=== PATIENT | female | born 1930 | race Caucasian/White ===

== ENCOUNTER 2016-08-28 20:07 | Inpatient (IN) | payer OTHER ==
[~2016-08-28] VITALS: Ht 147.3 cm; Wt 44.2 kg
[~2016-08-28 20:07] MED LIST: BRIM0.2S OPR; BRIN1SUS OPR; CPR250 PO; DFL100 PO; DTRSR4 PO; FLUO20CA35 PO; FNTTP50 TOP; METO25TA56 PO; OXYC-57 PO; POTA20TA13 PO; PRED-301 PO; SIMV-150 PO; SODIUM CHLORIDE 0.9% 1000ML 1,000 ML IV SCH; TRAZ100T29 PO; TYL325X PO; XNX25 PO; ZLF/100 PO
--- NOTE | 2016-08-28 20:13 | EMERGENCY ROOM VISIT NOTE ---
History Report prepared by Brandon: Steven Belcher Under the Supervision of: Dr. Maurice Pleitez D.O. First contact with patient: 19:48 Stated Complaint: STROKE SX History of Present Illness The patient is an 86 year old female who presents to the Emergency Room via EMS after the patient's family started to notice stroke-like symptoms that started one hour prior to arrival. Per EMS and family, the patient started having aphasia, right sided facial droop, and right sided weakness. Her last known well time was 1899. The patient's HPI is limited due to aphasia. Source of History: family, EMS History Limited By: aphasia Onset: 1 hour prior to arrival Associated Symptoms: + weakness (right-sided) Note: Other associated symptoms: aphasia, right sided facial droop Review of Systems The ROS is limited due to aphasia. Past Medical & Surgical Medical Problems: (1) Ambulatory dysfunction (2) Anxiety (3) Depression (4) Glaucoma (5) Hyperlipidemia (6) Hypertension (7) No pertinent past medical history (8) Osteoarthritis (9) Osteoporosis (10) Rheumatoid arthritis Family History Patient reports no known family medical history. Social History Marital Status: Housing Status: lives with family Occupation Status: retired Current/Historical Medications Scheduled Alprazolam (Xanax), 0.5 MG PO HS Aspirin (Aspirin), 325 MG PO QAM Brimonidine Tartrate-Timolol M (Combigan), 1 DROP OPR Q12 Brinzolamide Oph (Azopt Oph), 1 DROP OPR BID Diclofenac Sodium (Topical) (Voltaren 1% Top Gel), 1 APPLN TOP QID Fentanyl (Fentanyl), 75 MCG TOP [id number] Levothyroxine Sodium (Levothyroxine Sodium), 25 MCG PO QAM Lisinopril (Lisinopril), 2.5 MG PO QAM Methotrexate (Methotrexate), 2.5 MG PO UD Metoprolol Succinate (Metoprolol Succinate ER), 25 MG PO HS Omeprazole (Prilosec), 20 MG PO QAM Oxycodone/Acetaminophen 5MG/325MG (Percocet 5MG/325MG), 2 TABS PO QAM Oxycodone/Acetaminophen 5MG/325MG (Percocet 5MG/325MG), 2 TABS PO QPM Oxycodone/Acetaminophen 5MG/325MG (Percocet 5MG/325MG), 1 TABLET PO HS Prednisolone Acetate (Prednisolone Acetate), 1 DROP OPR HS Prednisone (Prednisone), 2.5 MG PO QAM Probiotic Product (Probiotic Acidophilus), 1 CAP PO QAM Sennosides-Docusate Sodium (Senna S), 3 TABS PO AMHS Sertraline HCl (Sertraline HCl), 150 MG PO QAM Simvastatin (Simvastatin), 10 MG PO HS Tolterodine Tartrate (Tolterodine Tartrate ER), 4 MG PO HS Trazodone Hcl (Trazodone), 100 MG PO BID Allergies Coded Allergies: No Known Allergies (Unverified , 02/09/15) Physical Exam Vital Signs Date Time Temp Pulse Resp B/P Pulse Ox O2 Delivery O2 Flow Rate FiO2 08/28/16 23:00 88 18 135/57 98 Nasal Cannula 4.0 08/28/16 22:30 65 16 118/58 99 Nasal Cannula 4.0 08/28/16 22:15 77 16 104/51 98 Nasal Cannula 4.0 08/28/16 22:10 66 16 106/51 98 Nasal Cannula 4.0 08/28/16 22:00 80 16 133/57 99 Nasal Cannula 4.0 08/28/16 21:45 86 18 126/123 98 Nasal Cannula 4.0 08/28/16 21:29 78 18 151/68 98 Nasal Cannula 4.0 08/28/16 21:14 84 20 175/78 91 08/28/16 21:10 128/95 08/28/16 21:09 78 23 98 08/28/16 21:04 70 14 175/130 100 08/28/16 21:04 74 08/28/16 21:00 171/99 08/28/16 20:59 58 15 172/106 99 Nasal Cannula 4.0 08/28/16 20:59 58 15 172/106 100 08/28/16 20:52 100 Nasal Cannula 4.0 08/28/16 20:49 75 14 203/98 98 Room Air 08/28/16 20:44 74 15 160/107 100 Nasal Cannula 4.0 08/28/16 20:40 72 203/98 Physical Exam GENERAL: Patient is awake looking to the left side, frothy sputum noticed at mouth, patient is not able to speak at this time. EYES: Pupils are mid-sized and reactive to light bilaterally. Patient has left gaze preference with right side neglect. EARS, NOSE, MOUTH AND THROAT: The nose is without any evidence of any deformity. Mucous membranes are moist. Frothy sputum noted. NECK: The neck is nontender and supple. RESPIRATORY: Normal respiratory effort is noted there is no evidence of wheezing rhonchi or rales CARDIOVASCULAR: Regular rate and rhythm noted there no murmurs rubs or gallops normal S1 normal S2 GASTROINTESTINAL: The abdomen is soft. Bowel sounds are present in all quadrants. Abdomen is nontender MUSCULOSKELETAL/EXTREMITIES: There is no evidence of gross deformity full range of motion is noted in the hips and shoulders SKIN: There is no obvious evidence of any rash. There are no petechiae, pallor or cyanosis noted. Trace pedal edema bilateral. NEUROLOGIC: Patient is aphasic, unable to assess orientation at this time, right facial droop noted. Pt appears flaccid in right upper extremity. Right lower extremity appears to move suddenly without purpose. Medical Decision & Procedures ER Provider Diagnostic Interpretation: Radiology results as stated below per my review and radiologist interpretation: CT OF THE HEAD WITHOUT CONTRAST CLINICAL HISTORY: Stroke COMPARISON STUDY: No previous studies for comparison. CT DOSE: 2432.49 mGy.cm TECHNIQUE: Helical axial images of the head were obtained without IV contrast. Automated exposure control was utilized for the study. FINDINGS: This exam is moderately compromised by motion artifact. There is no acute intracranial hemorrhage, midline shift or mass effect. Mild ventricular dilatation is likely due to atrophy. There are no extra-axial collections. There is possible loss of andrews-white differentiation within the left parietal, frontal and temporal lobes. There are postsurgical findings within the left maxillary sinus with wall thickening. There is moderate mucosal thickening of the sinuses. There is no calvarial fracture although sensitivity is diminished on this exam due to motion artifact. IMPRESSION: 1. No acute intracranial hemorrhage. 2. Study moderately by by motion artifact. Possible loss of andrews-white differentiation within portions of the left frontal, temporal and parietal lobes. This could reflect an acute infarct although is suboptimally assessed due to motion artifact. Electronically signed by: Jorge Luis Long M.D. 08/28/2016 8:23 PM Dictated Date/Time: 08/28/2016 8:18 PM CHEST ONE VIEW PORTABLE CLINICAL HISTORY: Stroke COMPARISON STUDY: Chest radiograph February 09, 2015 FINDINGS: S-shaped scoliosis of the thoracolumbar spine and elevation of the left hemidiaphragm is again noted. Elevation of both humeral heads suggest chronic rotator cuff tears. There is an old fracture the distal left clavicle. No pneumothorax or pleural effusion is present. There is no consolidation or evidence of pulmonary edema. Cardiac size is within normal limits. A skinfold projects over the left hemithorax. IMPRESSION: 1. No acute findings. No change in appearance of the chest. 2. Stable elevation of the left hemidiaphragm. 3. Moderate scoliosis of the thoracolumbar spine. Electronically signed by: Jorge Luis Long M.D. 08/28/2016 9:06 PM Dictated Date/Time: 08/28/2016 9:04 PM Laboratory Results 08/28/16 20:31 Red Blood Count 4.77, Mean Corpuscular Volume 86.4, Mean Corpuscular Hemoglobin 28.5, Mean Corpuscular Hemoglobin Concent 33.0, Mean Platelet Volume 9.6, Neutrophils (%) (Auto) 70.8, Lymphocytes (%) (Auto) 18.5, Monocytes (%) (Auto) 9.8, Eosinophils (%) (Auto) 0.3, Basophils (%) (Auto) 0.1, Neutrophils # (Auto) 7.30, Lymphocytes # (Auto) 1.91, Monocytes # (Auto) 1.01, Eosinophils # (Auto) 0.03, Basophils # (Auto) 0.01 08/28/16 20:31 Test 08/28/16 20:31 08/28/16 20:35 08/28/16 20:37 08/28/16 20:55 White Blood Count 10.31 K/uL (4.8-10.8) Red Blood Count 4.77 M/uL (4.2-5.4) Hemoglobin 13.6 g/dL (12.0-16.0) Hematocrit 41.2 % (37-47) Mean Corpuscular Volume 86.4 fL (80-100) Mean Corpuscular Hemoglobin 28.5 pg (25-34) Mean Corpuscular Hemoglobin Concent 33.0 g/dl (32-36) Platelet Count 231 K/uL (130-400) Mean Platelet Volume 9.6 fL (7.4-10.4) Neutrophils (%) (Auto) 70.8 % Lymphocytes (%) (Auto) 18.5 % Monocytes (%) (Auto) 9.8 % Eosinophils (%) (Auto) 0.3 % Basophils (%) (Auto) 0.1 % Neutrophils # (Auto) 7.30 K/uL (1.4-6.5) Lymphocytes # (Auto) 1.91 K/uL (1.2-3.4) Monocytes # (Auto) 1.01 K/uL (0.11-0.59) Eosinophils # (Auto) 0.03 K/uL (0-0.5) Basophils # (Auto) 0.01 K/uL (0-0.2) RDW Standard Deviation 51.2 fL (36.4-46.3) RDW Coefficient of Variation 16.2 % (11.5-14.5) Immature Granulocyte % (Auto) 0.5 % Immature Granulocyte # (Auto) 0.05 K/uL (0.00-0.02) Prothrombin Time 10.5 SECONDS (9.0-12.0) Prothromb Time International Ratio 1.0 (0.9-1.1) Activated Partial Thromboplast Time 19.6 SECONDS (21.0-31.0) Partial Thromboplastin Ratio 0.8 Estimated GFR () 82.5 Estimated GFR (Non- 71.2 BUN/Creatinine Ratio 29.2 (10-20) Calcium Level 8.6 mg/dl (8.5-10.1) Total Bilirubin 0.4 mg/dl (0.2-1) Direct Bilirubin < 0.1 mg/dl (0-0.2) Aspartate Amino Transf (AST/SGOT) 18 U/L (15-37) Alanine Aminotransferase (ALT/SGPT) 24 U/L (12-78) Alkaline Phosphatase 61 U/L (45-117) Total Creatine Kinase 137 U/L (26-192) Creatine Kinase MB 3.2 ng/ml (0.5-3.6) Creatine Kinase MB Ratio 2.3 (0-3.0) Troponin I 0.017 ng/ml (0-0.045) Total Protein 6.3 gm/dl (6.4-8.2) Albumin 3.4 gm/dl (3.4-5.0) Bedside Prothrombin Time INR 1.0 (0.9-1.1) Bedside Hemoglobin 14.3 g/dl (12.0-16.0) Bedside Hematocrit 42 % (37-47) Bedside Sodium 139 mEq/L (135-144) Bedside Potassium 4.6 mEq/L (3.3-5.0) Bedside Chloride 104 mEq/L (101-112) Bedside Total CO2 23 mEq/l (24-31) Anion Gap 18.0 mmol/L (16-25) Bedside Blood Urea Nitrogen 23 mg/dl (7-18) Bedside Creatinine 0.7 mg/dl (0.6-1.3) Bedside Glucose (other) 131 mg/dl (70-99) Bedside Ionized Calcium ([place]asha) 1.19 mmol/l (1.12-1.32) Urine Color YELLOW Urine Appearance CLEAR (CLEAR) Urine pH 7.0 (4.5-7.5) Urine Specific [place] 1.009 (1.000-1.030) Urine Protein NEG (NEG) Urine Glucose (UA) NEG (NEG) Urine Ketones NEG (NEG) Urine Occult Blood 1+ (NEG) Urine Nitrite NEG (NEG) Urine Bilirubin NEG (NEG) Urine Urobilinogen NEG (NEG) Urine Leukocyte Esterase NEG (NEG) Urine WBC (Auto) 1-5 /hpf (0-5) Urine RBC (Auto) 5-10 /hpf (0-4) Urine Hyaline Casts (Auto) 0 /lpf (0-5) Urine Epithelial Cells (Auto) 10-20 /lpf (0-5) Urine Bacteria (Auto) NEG (NEG) Urine Opiates Screen NEG (NEG) Urine Methadone, Qualitative NEG (NEG) Urine Barbiturates NEG (NEG) Urine Phencyclidine (PCP) Level NEG (NEG) Ur Amphetamine/Methamphetamine NEG (NEG) MDMA (Ecstasy) Screen NEG (NEG) Urine Benzodiazepines Screen POS (NEG) Urine Cocaine Metabolite NEG (NEG) Urine Marijuana (THC) NEG (NEG) Laboratory results per my review. Medications Administered Medications (Trade) Dose Ordered Sig/Joseph Route Start Time Stop Time Status Last Admin Dose Admin Sodium Chloride 1,000 ml @ 50 mls/hr Q20H IV 08/28/16 19:50 08/29/16 00:22 DC 08/28/16 19:50 50 MLS/HR Alteplase, Recombinant 39.6 mg/Empty Bag 39.6 ml @ 39.6 mls/hr TODAY@2029 IV 08/28/16 20:30 08/28/16 21:29 DC 08/28/16 20:46 39.6 MLS/HR Alteplase, Recombinant/ Syringe (Activase Inj/ Syringe) 4.4 ml @ 4.4 mls/min TODAY@2030 IV 08/28/16 20:30 08/28/16 21:00 DC 08/28/16 20:46 4.4 MLS/MIN Metoprolol Tartrate 5 mg 5 mg NOW STAT IV 08/28/16 20:32 08/28/16 20:33 DC 08/28/16 20:40 5 MG Nicardipine HCl/ Sodium Chloride (Cardene Iv/Nss 250ml) 250 ml @ 0 mls/hr Q0M STAT IV 08/28/16 20:32 08/28/16 20:33 DC 08/28/16 21:12 50 MLS/HR ECG Indication: other Rate (beats per minute): 70 Rhythm: normal sinus Findings: no ectopy, other (no acute ST segment abnormality) ED Course 1949: Ordered NSS 1000 ml @ 50 mls/hr IV. 2000: The patient was evaluated in room A1. A complete history and physical examination were performed. 2019: At this time, I discussed the patient's case with her family, and son, who agreed to TPA. 2027: At this time, I discussed the patient's case with Dr. Gonzalez - [facility] and he agreed with TPA as long as their were no other contraindications. 2029: Ordered Alteplase Recombinant 4.4 mg/ Syringe 4.4 ml @ 4.4 mls/min IV. 2031: At this time, TPA was administered to the patient. 2031: Ordered Nicardipine HCl 25 mg/ NSS 250 ml @ 0 mls/hr IV, Lopressor Iv 5 mg IV. 2111: At this time, I discussed the patient's case with Dr. Gonzalez - [facility] and he wants to transfer the patient. 2118: At this time, I updated the patient's family and discussed the test results with them. 2144: At this time, I discussed the patient's case with Dr. Fitzpatrick - [facility] and she agreed to accept the patient for further evaluation. Medical Decision Differential diagnosis: Etiologies such as metabolic, infection, hypo/hyperglycemia, electrolyte abnormalities, cardiac sources, intracerebral event, toxicologic, neurologic, as well as others were entertained. Nursing notes reviewed. Additional history is obtained from the patient's family members. Additional history is obtained from the prehospital personnel. The patient is an 86-year-old female who presented to the emergency department with a strokelike syndrome. I received a prehospital medical command phone call about this patient and she was made a stroke alert. The patient had a clear onset of her symptoms at approximately 7 p.m. The patient presented with a definite stroke like syndrome with right sided weakness right-sided facial droop and right sided neglect. The patient was felt to be a candidate for TPA. Her initial CAT scan did not show any signs of hemorrhage so she was given TPA in the emergency department. The patient was reevaluated multiple times. She was also evaluated by the [facility] stroke neurologist via the tele stroke neurologist. Initially they felt that the patient would be a good candidate for intervention and we attempted to make the patient is transferred to [facility] for possible further surgical intervention however the family did not wish her to be transferred and felt that she would not have wanted such aggressive measures at this time. The patient was reevaluated multiple times. The patient was further treated with IV fluids and IV antihypertensive. Her blood pressure improved. Her overall condition did not significantly improve while she was in the emergency department. I discussed the patient's laboratory and radiographic studies with the family members. I also discussed his case with the on-call [facility] group. They have agreed to evaluate the patient in the emergency department for further management and disposition. Consults Time Called: 2022 Consulting Physician: Dr. Gonzalez - [facility] Returned Call: 2027 At this time, I discussed the patient's case with Dr. Gonzalez and he agreed with TPA as long as their were no other contraindications. Additional Consults: Time Called: 2106 Consulted Physician: Dr. Gonzalez - Neurology [facility] Returned Call: 2111 Additional Comments: 2111: At this time, I discussed the patient's case with Dr. Gonzalez and he wants to transfer the patient. Time Called: 2139 Consulted Physician: Dr. Fitzpatrick - Hospital[facility] Returned Call: 2144 Additional Comments: At this time, I discussed the patient's case with Dr. Fitzpatrick and she agreed to accept the patient for further evaluation. 60 minutes Impression Primary Impression: Acute cerebrovascular accident (CVA) Critical Care I have personally spent greater than 60 minutes of critical care time in the direct management of this patient. This includes bedside care, interpretation of diagnostic studies, and testing, discussion with consultants, patient, and family members, and other required patient management activities. This 60 minutes is in excess of all separately billable procedures. Scribe Attestation The scribe's documentation has been prepared under my direction and personally reviewed by me in its entirety. I confirm that the note above accurately reflects all work, treatment, procedures, and medical decision making performed by me. Departure Information Dispostion Being Evaluated By [facility]
--- NOTE | 2016-08-28 20:29 | DIAGNOSTIC IMAGING REPORT ---
CT OF THE HEAD WITHOUT CONTRAST CLINICAL HISTORY: Stroke COMPARISON STUDY: No previous studies for comparison. CT DOSE: 2432.49 mGy.cm TECHNIQUE: Helical axial images of the head were obtained without IV contrast. Automated exposure control was utilized for the study. FINDINGS: This exam is moderately compromised by motion artifact. There is no acute intracranial hemorrhage, midline shift or mass effect. Mild ventricular dilatation is likely due to atrophy. There are no extra-axial collections. There is possible loss of andrews-white differentiation within the left parietal, frontal and temporal lobes. There are postsurgical findings within the left maxillary sinus with wall thickening. There is moderate mucosal thickening of the sinuses. There is no calvarial fracture although sensitivity is diminished on this exam due to motion artifact. IMPRESSION: 1. No acute intracranial hemorrhage. 2. Study moderately by by motion artifact. Possible loss of andrews-white differentiation within portions of the left frontal, temporal and parietal lobes. This could reflect an acute infarct although is suboptimally assessed due to motion artifact. Electronically signed by: Jorge Luis Long M.D. 08/28/2016 8:23 PM Dictated Date/Time: 08/28/2016 8:18 PM
[2016-08-28] MEDS ORDERED: RECOMBINANT IV SCH ×2 (20:30)
[2016-08-28] MEDS ORDERED: SET 2260-0500 IV ONE (20:30)
[2016-08-28] MEDS ORDERED: ALTEPLASE IV SCH ×2 (20:30)
[2016-08-28] MEDS ORDERED: METOPROLOL TARTRATE 1 MG/ML VIAL IV STA (20:32)
[2016-08-28] MEDS ORDERED: NiCARDipine IV 25 MG in SODIUM CHLORIDE 0.9% 250ML 240 ML IV STA (20:32)
[2016-08-28 20:45] LABS: BASO % 0.1 %; BASO ABS # 0.01 K/uL (0-0.2); COMPLETE YES; EOS % 0.3 %; HEMATOCRIT 41.2 % (37-47); IG% 0.5 %; LYMPH % 18.5 %; LYMPH ABS # 1.91 K/uL (1.2-3.4); MEAN CELL VOLUME 86.4 fL (80-100); MEAN CORPUSCULAR HEMOGLOBIN 28.5 pg (25-34); MEAN PLATELET VOLUME 9.6 fL (7.4-10.4); MONO % 9.8 %; NEUT % 70.8 %; PLATELET COUNT 231 K/uL (130-400); RED BLOOD COUNT 4.77 M/uL (4.2-5.4); WHITE BLOOD COUNT 10.31 K/uL (4.8-10.8)
[2016-08-28 20:52] LABS: ISTAT CREATININE 0.7 mg/dl (0.6-1.3); ISTAT HEMOGLOBIN 14.3 g/dl (12.0-16.0); ISTAT IONIZED CALCIUM 1.19 mmol/l (1.12-1.32)
[2016-08-28 20:58] LABS: PARTIAL THROMBOPLASTIN RATIO 0.8; PROTHROMBIN TIME (PATIENT) 10.5 SECONDS (9.0-12.0)
[2016-08-28 21:02] LABS: ALT/SGPT 24 U/L (12-78); BLOOD UREA NITROGEN 22 mg/dl (7-18); BUN/CREATININE RATIO 29.2 (10-20); CALCIUM 8.6 mg/dl (8.5-10.1); CARBON DIOXIDE 28 mmol/L (21-32); CHLORIDE 103 mmol/L (98-107); CREATININE 0.75 mg/dl (0.60-1.20); GLUCOSE 126 mg/dl (70-99); POTASSIUM 4.4 mmol/L (3.5-5.1); SODIUM 137 mmol/L (136-145)
[2016-08-28 21:07] LABS: ALKALINE PHOSPHATASE 61 U/L (45-117); AST/SGOT 18 U/L (15-37); CKMB/CK RATIO 2.3 (0-3.0)
[2016-08-28 21:07] LABS: URINE APPEARANCE CLEAR (CLEAR); URINE BILIRUBIN NEG (NEG); URINE COLOR YELLOW; URINE NITRITE NEG (NEG); URINE SPECIFIC GRAVITY 1.009 (1.000-1.030); UROBILINOGEN NEG (NEG)
--- NOTE | 2016-08-28 21:07 | DIAGNOSTIC IMAGING REPORT ---
CHEST ONE VIEW PORTABLE CLINICAL HISTORY: Stroke COMPARISON STUDY: Chest radiograph February 09, 2015 FINDINGS: S-shaped scoliosis of the thoracolumbar spine and elevation of the left hemidiaphragm is again noted. Elevation of both humeral heads suggest chronic rotator cuff tears. There is an old fracture the distal left clavicle. No pneumothorax or pleural effusion is present. There is no consolidation or evidence of pulmonary edema. Cardiac size is within normal limits. A skinfold projects over the left hemithorax. IMPRESSION: 1. No acute findings. No change in appearance of the chest. 2. Stable elevation of the left hemidiaphragm. 3. Moderate scoliosis of the thoracolumbar spine. Electronically signed by: Jorge Luis Long M.D. 08/28/2016 9:06 PM Dictated Date/Time: 08/28/2016 9:04 PM
[2016-08-28 21:21] LABS: MANUAL MICROSCOPIC REQUIRED? NO; REVIEW REQ? NO
[2016-08-28 21:26] LABS: BENZODIAZEPINE, URINE POS (NEG); COCAINE,URINE NEG (NEG); PHENCYCLIDINE, URINE NEG (NEG)
[2016-08-28] MEDS ORDERED: LEVO25TA5 PO (21:57)
[2016-08-28] MEDS ORDERED: PRD/25 PO (21:57)
[2016-08-28] MEDS ORDERED: LSN25 PO (21:57)
[2016-08-28] MEDS ORDERED: TRAZ100T29 PO (22:00)
[2016-08-28] MEDS ORDERED: FNTTP75 TOP (22:02)
[2016-08-28] MEDS ORDERED: OXYC-57 PO ×3 (22:02→22:26)
[2016-08-28] MEDS ORDERED: ALPR-411 PO (22:04)
[2016-08-28] MEDS ORDERED: TOLT1CAP3 PO (22:05)
[2016-08-28] MEDS ORDERED: TPRSR/25 PO (22:07)
[2016-08-28] MEDS ORDERED: SENN-91 PO (22:12)
[2016-08-28] MEDS ORDERED: PRDFOPS OPR (22:12)
[2016-08-28] MEDS ORDERED: OMEP20CA9 PO (22:12)
[2016-08-28] MEDS ORDERED: BCTROWC TOP (22:12)
[2016-08-28] MEDS ORDERED: ASPI325T45 PO (22:12)
[2016-08-28] MEDS ORDERED: DICL1GEL12 TOP (22:14)
[2016-08-28] MEDS ORDERED: PROB1CAP6 PO (22:14)
[2016-08-28] MEDS ORDERED: MTH25 PO (22:35)
[2016-08-28] MEDS ORDERED: LORAZEPAM 2 MG/ML 1 ML VIAL IV PRN (23:15)
[2016-08-28 23:55] VITALS: BP 149/69; PULSE 67; TEMP 36.6; O2SAT 97; Ht 147.3 cm; Wt 44.2 kg
--- NOTE | 2016-08-28 23:59 | History and Physical ---
History & Physical Date & Time of Service: Aug 28, 2016 at 23:40 Chief Complaint: Stroke Sx Primary Care Physician: Maria Eugenia Lynne M.D. History of Present Illness Source: family, clinic records 86 YO F presented to ER after family noticed acute stroke symptoms at home that began roughly one hour prior to arrival. Per and son who are at bedside she was unable to speak, had R facial droop and generalized weakness greater on the right. A stroke alert was called and she received TPA without improvement in symptoms. CT head reveals a massive stroke on the left side and the patient has a leftward gaze. She is unable to communicate at this time. Per her , she was just speaking with him about how she didn't want any aggressive measures, therefore she is DNR/DNI. We discussed there is a possibility she may worsen overnight and he verbalized understanding that this could occur. Past Medical/Surgical History Medical Problems: (1) Ambulatory dysfunction Status: Chronic (2) Anxiety Status: Chronic (3) Depression Status: Chronic (4) Glaucoma Status: Chronic (5) Hyperlipidemia Status: Chronic (6) Hypertension Status: Chronic (7) Osteoarthritis Status: Chronic (8) Osteoporosis Status: Chronic (9) Rheumatoid arthritis Status: Chronic Family History Patient reports no known family medical history. Social History Smoking Status: Never Smoker Alcohol Use: socially Marital Status: Housing status: lives with significant other Occupational Status: retired Immunizations History of Influenza Vaccine: Yes Influenza Vaccine Date: Feb 01, 2016 History of Tetanus Vaccine?: Yes Tetanus Immunization Date: Mar 27, 1993 History of Pneumococcal: Yes Pneumococcal Date: Mar 27, 1993 History of Hepatitis B Vaccine: No Multi-Drug Resistant Organisms History of MDRO: No Allergies Coded Allergies: No Known Allergies (Unverified , 02/09/15) Home Medications Scheduled Alprazolam (Xanax), 0.5 MG PO HS Aspirin (Aspirin), 325 MG PO QAM Brimonidine Tartrate-Timolol M (Combigan), 1 DROP OPR Q12 Brinzolamide Oph (Azopt Oph), 1 DROP OPR BID Diclofenac Sodium (Topical) (Voltaren 1% Top Gel), 1 APPLN TOP QID Fentanyl (Fentanyl), 75 MCG TOP [id number] Levothyroxine Sodium (Levothyroxine Sodium), 25 MCG PO QAM Lisinopril (Lisinopril), 2.5 MG PO QAM Methotrexate (Methotrexate), 2.5 MG PO UD Metoprolol Succinate (Metoprolol Succinate ER), 25 MG PO HS Omeprazole (Prilosec), 20 MG PO QAM Oxycodone/Acetaminophen 5MG/325MG (Percocet 5MG/325MG), 2 TABS PO QAM Oxycodone/Acetaminophen 5MG/325MG (Percocet 5MG/325MG), 2 TABS PO QPM Oxycodone/Acetaminophen 5MG/325MG (Percocet 5MG/325MG), 1 TABLET PO HS Prednisolone Acetate (Prednisolone Acetate), 1 DROP OPR HS Prednisone (Prednisone), 2.5 MG PO QAM Probiotic Product (Probiotic Acidophilus), 1 CAP PO QAM Sennosides-Docusate Sodium (Senna S), 3 TABS PO AMHS Sertraline HCl (Sertraline HCl), 150 MG PO QAM Simvastatin (Simvastatin), 10 MG PO HS Tolterodine Tartrate (Tolterodine Tartrate ER), 4 MG PO HS Trazodone Hcl (Trazodone), 100 MG PO BID Review of Systems ROS could not be obtained as patient is aphasic and unresponsive. Physical Exam Vital Signs Date Time Temp Pulse Resp B/P Pulse Ox O2 Delivery O2 Flow Rate FiO2 08/28/16 23:30 75 16 114/73 99 Nasal Cannula 4.0 08/28/16 23:00 88 18 135/57 98 Nasal Cannula 4.0 08/28/16 22:30 65 16 118/58 99 Nasal Cannula 4.0 08/28/16 22:15 77 16 104/51 98 Nasal Cannula 4.0 08/28/16 22:10 66 16 106/51 98 Nasal Cannula 4.0 08/28/16 22:00 80 16 133/57 99 Nasal Cannula 4.0 08/28/16 21:45 86 18 126/123 98 Nasal Cannula 4.0 08/28/16 21:29 78 18 151/68 98 Nasal Cannula 4.0 08/28/16 21:14 84 20 175/78 91 08/28/16 21:10 128/95 08/28/16 21:09 78 23 98 08/28/16 21:04 70 14 175/130 100 08/28/16 21:04 74 08/28/16 21:00 171/99 08/28/16 20:59 58 15 172/106 99 Nasal Cannula 4.0 08/28/16 20:59 58 15 172/106 100 08/28/16 20:52 100 Nasal Cannula 4.0 08/28/16 20:49 75 14 203/98 98 Room Air 08/28/16 20:44 74 15 160/107 100 Nasal Cannula 4.0 08/28/16 20:40 72 203/98 GEN: frail, elderly thin, aphasic with frothing at the mouth, leftward gaze and cannot look past midline to the right side, expression less face, appears calm and somewhat alert in that she is opening her eyes but is not following commands. HEENT: NC/AT, PERRL, normal sclerae, leftward gaze CARDIO: reg rate, S1/2 heard without m/g/r LUNGS: (very limited exam as patient cannot follow instructions and has limited mobility) CTA bilaterally, no crackles, rales or wheezes, good diaphragmatic excursion ABD: soft, non-distended, no rebound or guarding, +BS EXTREMITY: RP and DP palpable 2+ bilat, no LE swelling or edema, extremities are warm and well-perfused R upgoing toe, appears to flex knee and RUE when stimulated on the right side L could not elicit reflexes, random movements with LUE and LLE NEURO: as above, limited exam MUSC: as above. SKIN: warm and dry Diagnostics Laboratory Results Results Past 24 Hours Test 08/28/16 20:31 08/28/16 20:35 08/28/16 20:37 08/28/16 20:55 Range/Units White Blood Count 10.31 4.8-10.8 K/uL Red Blood Count 4.77 4.2-5.4 M/uL Hemoglobin 13.6 12.0-16.0 g/dL Hematocrit 41.2 37-47 % Mean Corpuscular Volume 86.4 80-100 fL Mean Corpuscular Hemoglobin 28.5 25-34 pg Mean Corpuscular Hemoglobin Concent 33.0 32-36 g/dl Platelet Count 231 130-400 K/uL Mean Platelet Volume 9.6 7.4-10.4 fL Neutrophils (%) (Auto) 70.8 % Lymphocytes (%) (Auto) 18.5 % Monocytes (%) (Auto) 9.8 % Eosinophils (%) (Auto) 0.3 % Basophils (%) (Auto) 0.1 % Neutrophils # (Auto) 7.30 1.4-6.5 K/uL Lymphocytes # (Auto) 1.91 1.2-3.4 K/uL Monocytes # (Auto) 1.01 0.11-0.59 K/uL Eosinophils # (Auto) 0.03 0-0.5 K/uL Basophils # (Auto) 0.01 0-0.2 K/uL RDW Standard Deviation 51.2 36.4-46.3 fL RDW Coefficient of Variation 16.2 11.5-14.5 % Immature Granulocyte % (Auto) 0.5 % Immature Granulocyte # (Auto) 0.05 0.00-0.02 K/uL Prothrombin Time 10.5 9.0-12.0 SECONDS Prothromb Time International Ratio 1.0 0.9-1.1 Activated Partial Thromboplast Time 19.6 21.0-31.0 SECONDS Partial Thromboplastin Ratio 0.8 Sodium Level 137 136-145 mmol/L Potassium Level 4.4 3.5-5.1 mmol/L Chloride Level 103 98-107 mmol/L Carbon Dioxide Level 28 21-32 mmol/L Anion Gap 6.0 18.0 16-25 mmol/L Blood Urea Nitrogen 22 7-18 mg/dl Creatinine 0.75 0.60-1.20 mg/dl Estimated GFR () 82.5 Estimated GFR (Non- 71.2 BUN/Creatinine Ratio 29.2 10-20 Random Glucose 126 70-99 mg/dl Calcium Level 8.6 8.5-10.1 mg/dl Total Bilirubin 0.4 0.2-1 mg/dl Direct Bilirubin < 0.1 0-0.2 mg/dl Aspartate Amino Transf (AST/SGOT) 18 15-37 U/L Alanine Aminotransferase (ALT/SGPT) 24 12-78 U/L Alkaline Phosphatase 61 45-117 U/L Total Creatine Kinase 137 26-192 U/L Creatine Kinase MB 3.2 0.5-3.6 ng/ml Creatine Kinase MB Ratio 2.3 0-3.0 Troponin I 0.017 0-0.045 ng/ml Total Protein 6.3 6.4-8.2 gm/dl Albumin 3.4 3.4-5.0 gm/dl Bedside Prothrombin Time INR 1.0 0.9-1.1 Bedside Hemoglobin 14.3 12.0-16.0 g/dl Bedside Hematocrit 42 37-47 % Bedside Sodium 139 135-144 mEq/L Bedside Potassium 4.6 3.3-5.0 mEq/L Bedside Chloride 104 101-112 mEq/L Bedside Total CO2 23 24-31 mEq/l Bedside Blood Urea Nitrogen 23 7-18 mg/dl Bedside Creatinine 0.7 0.6-1.3 mg/dl Bedside Glucose (other) 131 70-99 mg/dl Bedside Ionized Calcium ([place]) 1.19 1.12-1.32 mmol/l Urine Color YELLOW Urine Appearance CLEAR CLEAR Urine pH 7.0 4.5-7.5 Urine Specific [place] 1.009 1.000-1.030 Urine Protein NEG NEG Urine Glucose (UA) NEG NEG Urine Ketones NEG NEG Urine Occult Blood 1+ NEG Urine Nitrite NEG NEG Urine Bilirubin NEG NEG Urine Urobilinogen NEG NEG Urine Leukocyte Esterase NEG NEG Urine WBC (Auto) 1-5 0-5 /hpf Urine RBC (Auto) 5-10 0-4 /hpf Urine Hyaline Casts (Auto) 0 0-5 /lpf Urine Epithelial Cells (Auto) 10-20 0-5 /lpf Urine Bacteria (Auto) NEG NEG Urine Opiates Screen NEG NEG Urine Methadone, Qualitative NEG NEG Urine Barbiturates NEG NEG Urine Phencyclidine (PCP) Level NEG NEG Ur Amphetamine/Methamphetamine NEG NEG MDMA (Ecstasy) Screen NEG NEG Urine Benzodiazepines Screen POS NEG Urine Cocaine Metabolite NEG NEG Urine Marijuana (THC) NEG NEG Diagnostic Radiology Head CT (initial): 1. No acute intracranial hemorrhage. 2. Study moderately by by motion artifact. Possible loss of andrews-white differentiation within portions of the left frontal, temporal and parietal lobes. This could reflect an acute infarct although is suboptimally assessed due to motion artifact. EKG SR 70 bpm. Impression Assessment and Plan 86 yo female presents with large territory L infarct unresponsive to TPA 1. Acute CVA-patient was on ASA 325 prior to this, has Rheumatoid arthritis and age as risk factors for stroke. s/p TPA in ER with min to no improvement. Will monitor in ICU for next two days. No arterial sticks, blood draws or IVs for next 24 hours. No NGT, CT head ordered in 24 hours. Labetalol PRN to keep BP<185/110. VS q1hr. Neuro checks per protocol. HOB>30 degrees for aspiration risk. Neuro consulted (Dr. Hanley) and aware of patient. Cont supportive care and close monitoring. 2. Rheumatoid arthritis-holding MTX, prednisone held also--very small dose, however, if decompensation will add IV steroids. 3. Anxiety/depression-holding Xanax and Sertraline 4. Chronic pain-duragesic patch held/PO narcotics held 2/2 AMS, however, she is tolerant and withdrawal may be an issue down the road. Will monitor for this closely in the ICU setting. 5. Hypertension-hold PO meds, Labetalol PRN as above. 6. Hypothyroidism-hold PO meds, dose is small so no IV dose will be given at this time, prognosis is poor. 7. GERD 8. Ambulatory dysfunction-ambulates with a walker at baseline. 9. Glaucoma DVT proph-SCDs/TEDs for first 24 hours after TPA administration DNR/DNI-per conversation with he mentioned 4 times that she would not want any aggressive measures taken. Dispo-to be monitored in the ICU, prognosis is very poor and this was shared with the family who understand. Ashia Fitzpatrick, DO [facility] Hospitalist Level of Care Critical Care Resuscitation Status DO NOT RESUSCITATE VTE Prophylaxis VTE Risk Assessment Done? Y/N: Yes Risk Level: Moderate Given or contraindicated: Contraindicated
[2016-08-29] VITALS (31 sets, daily range): BP systolic 131–202; BP diastolic 63–136; PULSE 65–94; TEMP 36.5–37.8; O2SAT 91–98
[2016-08-29] MEDS ORDERED: PHARMACIST DISCHARGE MED REC CONSULT PRN
[2016-08-29] MEDS: LABETALOL HCL IV 5 MG/ML 20ML IV PRN ×3 (03:41→08:31)
--- NOTE | 2016-08-29 08:24 | DIAGNOSTIC IMAGING REPORT ---
HEAD CT NONCONTRAST CT DOSE: 537.48 mGy.cm HISTORY: Mental status change S/P TPA ADMINISTRATION FOR STROKE TECHNIQUE: Multiaxial CT images of the head were performed without the use of intravenous contrast. Comparison: 08/28/2016 Findings: The paranasal sinuses and mastoid air cells are clear. Interval development of a large hemorrhagic component involving the left hemisphere. This involves the left temporal parietal distribution. Posterior anterior lobe involvement is also noted. Greatest geographic extent is approximately 9 x 6 cm. Midline shift to the right is 1 cm. No definite extension to the right lateral ventricle although there is extension to the occipital horn left lateral ventricle. Third ventricle is displaced to the right. There is partial effacement of the quadrigeminal plate cistern as well as suprasellar cisterns. This would indicate developing pressure on the brainstem. Impression: 1. Interval development of a large left cerebral hemorrhage. 2. Midline shift to the right of 1 cm with evidence for intraventricular extension. 3. Geographic extent of the hemorrhage is probably 9 x 6 cm. 4. Effacement of the left cerebral sulci, as well as developing pressure on the brainstem with partial effacement of the suprasellar cisterns. Electronically signed by: Singh Washington M.D. 08/29/2016 8:22 AM Dictated Date/Time: 08/29/2016 8:17 AM
[2016-08-29] MEDS: LORAZEPAM 2 MG/ML 1 ML VIAL IV PRN ×2 (08:53→10:18)
[2016-08-29] MEDS: ACETAMINOPHEN IV 650 MG in EMPTY BAG 0 ML IV PRN (08:54)
[2016-08-29] MEDS: MoRPHine SULFATE 2 MG/ML CARP IV PRN ×3 (09:28→17:52)
--- NOTE | 2016-08-29 09:42 | DIAGNOSTIC IMAGING REPORT ---
SINGLE VIEW CHEST CLINICAL HISTORY: Aspiration. Stroke. FINDINGS: An AP, portable, semierect chest radiograph is compared to study dated 08/28/2016. The heart is top normal for projection and there is atherosclerotic calcification of the thoracic aorta. Chronic interstitial thickening is unchanged, as is elevation of left hemidiaphragm. There is minimal bibasilar atelectasis. No airspace consolidation is identified typical for pneumonia and there is no large pleural effusion. No pneumothorax is seen. The skeletal structures are osteopenic. Degenerative change and scoliosis are noted in the thoracic spine. 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 IMPRESSION: No acute cardiopulmonary abnormality and no significant change from yesterday. Electronically signed by: Donal Murray M.D. 08/29/2016 9:41 AM Dictated Date/Time: 08/29/2016 9:40 AM
--- NOTE | 2016-08-29 10:28 | Critical Care Consultation ---
Critical Care Consultation Date of Consultation: Aug 29, 2016. Attending Physician: Beryl Darling MD Reason for Consultation: TPA administration for stroke History of Present Illness This is an 86 yo f that is presenting to us after acute stoke like symptoms requiring tpa Administration. The patient was at home when her and son suddenly noticed acute aphasia, right sided facial drooping and right sided weakness. She was brought to the ED and patient was evaluated along side a Ryann neurology consult. A ct of the head was done and results were suggestive of a left sided stroke involving the frontal, temporal and parietal region. Since the patient was brought quickly to the ED and the procedure was discussed multiple times with the son and father it was decided Tpa was to be administered. He did note multiple times that no aggressive measures were to be done otherwise as she would not wish it so she was a DNR. She was administered the Tpa at approx 2030 and d/c at 2100. She was also given Nicardipine and Lopressor during administration. She was then transferred to the ICU. On assessment the patient was only withdrawing to pain and would not open eyes/ follow commands. She was moving her left extremities freely and occasionally the right side. It was noted at approx 0630 that the pupils were now sluggish to respond to light and the left pupil was x2 greater in size compared to the right. It was decided that she would promptly receive her CT of her head and not wait. She was noted to have a geographic distribution of an intracranial hemorrhage. The greatest extent was 9x6 cm and a right midline shift measured at 1cm. Comfort measures were discussed with daughter and she was agreeable however waiting for to confirm. Unable to complete a full 10 system review of systems because patient was unresponsive. Past Medical/Surgical History RA Anxiety/ Depression HTN hypothyroidism GERD Glaucoma Family History Patient reports no known family medical history. Unable to complete because of unresponsiveness Social History Smoking Status: Unknown if Ever Smoked Marital Status: Housing Status: lives with family Occupation Status: retired Allergies Coded Allergies: No Known Allergies (Unverified , 02/09/15) Home Medications Scheduled Alprazolam (Xanax), 0.5 MG PO HS Aspirin (Aspirin), 325 MG PO QAM Brimonidine Tartrate-Timolol M (Combigan), 1 DROP OPR Q12 Brinzolamide Oph (Azopt Oph), 1 DROP OPR BID Diclofenac Sodium (Topical) (Voltaren 1% Top Gel), 1 APPLN TOP QID Fentanyl (Fentanyl), 75 MCG TOP [id number] Levothyroxine Sodium (Levothyroxine Sodium), 25 MCG PO QAM Lisinopril (Lisinopril), 2.5 MG PO QAM Methotrexate (Methotrexate), 2.5 MG PO UD Metoprolol Succinate (Metoprolol Succinate ER), 25 MG PO HS Omeprazole (Prilosec), 20 MG PO QAM Oxycodone/Acetaminophen 5MG/325MG (Percocet 5MG/325MG), 2 TABS PO QAM Oxycodone/Acetaminophen 5MG/325MG (Percocet 5MG/325MG), 2 TABS PO QPM Oxycodone/Acetaminophen 5MG/325MG (Percocet 5MG/325MG), 1 TABLET PO HS Prednisolone Acetate (Prednisolone Acetate), 1 DROP OPR HS Prednisone (Prednisone), 2.5 MG PO QAM Probiotic Product (Probiotic Acidophilus), 1 CAP PO QAM Sennosides-Docusate Sodium (Senna S), 3 TABS PO AMHS Sertraline HCl (Sertraline HCl), 150 MG PO QAM Simvastatin (Simvastatin), 10 MG PO HS Tolterodine Tartrate (Tolterodine Tartrate ER), 4 MG PO HS Trazodone Hcl (Trazodone), 100 MG PO BID Current Inpatient Medications Current Inpatient Medications Medications (Trade) Dose Ordered Sig/Joseph Route Start Time Stop Time Status Last Admin Dose Admin Pantoprazole Sodium/Syringe (Protonix Inj/ Syringe) 10 ml @ 5 mls/min DAILY@11 IV 08/29/16 11:00 09/28/16 10:59 Labetalol HCl (Normodyne IV) 10 mg Q1H PRN IV 08/28/16 23:45 09/27/16 23:44 08/29/16 08:31 10 MG Miscellaneous Information 1 ea 1 ea UD PRN N/A 08/29/16 00:00 09/28/16 00:00 Acetaminophen/ Empty Bag (Ofirmev IV/ Empty Iv Bag 100ml) 65 ml @ 260 mls/hr Q6H PRN IV 08/29/16 07:00 09/28/16 06:59 08/29/16 08:54 260 MLS/HR Lorazepam (Ativan Inj) 1 mg Q1H PRN IV 08/29/16 09:15 09/28/16 09:14 08/29/16 08:53 1 MG Morphine Sulfate (MoRPHine SULFATE INJ) 2 mg Q2H PRN IV 08/29/16 08:45 09/12/16 08:44 08/29/16 09:28 2 MG Review of Systems Unable to complete a full 10 system review of systems because patient was unresponsive. Constitutional: + fever (new onset overnight) Physical Exam Date Time Temp Pulse Resp B/P Pulse Ox O2 Delivery O2 Flow Rate FiO2 08/29/16 08:00 Room Air 08/29/16 08:00 36.8 81 22 172/108 96 08/29/16 08:00 Room Air 08/29/16 07:30 92 24 174/102 96 08/29/16 07:00 78 159/109 08/29/16 07:00 36.9 94 26 179/104 97 08/29/16 06:30 37.8 89 22 202/99 97 Room Air 08/29/16 05:30 37.2 79 20 185/102 96 Room Air 08/29/16 04:30 36.5 81 20 161/75 98 Room Air 08/29/16 04:00 78 24 149/88 98 Room Air 08/29/16 04:00 98 Room Air 08/29/16 03:30 36.5 87 26 189/136 97 Room Air 08/29/16 03:00 67 15 97 08/29/16 02:59 70 17 131/72 95 08/29/16 02:45 87 21 97 08/29/16 02:30 36.7 81 22 167/92 96 Room Air 08/29/16 02:30 79 21 97 08/29/16 02:29 78 24 167/92 97 08/29/16 02:15 79 20 98 08/29/16 02:00 88 18 173/125 97 08/29/16 01:45 84 19 96 08/29/16 01:33 84 24 182/85 96 08/29/16 01:30 89 18 98 08/29/16 01:30 36.7 79 20 182/85 98 Room Air 08/29/16 01:29 93 19 190/108 94 08/29/16 01:15 82 16 98 08/29/16 01:00 76 14 97 08/29/16 00:59 82 22 143/86 96 08/29/16 00:45 82 24 96 08/29/16 00:30 92 15 97 08/29/16 00:30 36.6 81 20 172/106 98 Room Air 08/29/16 00:29 86 13 172/106 91 08/29/16 00:16 69 14 149/69 96 08/29/16 00:15 65 18 98 08/28/16 23:55 36.6 67 16 149/69 97 Room Air 08/28/16 23:30 75 16 114/73 99 Nasal Cannula 4.0 08/28/16 23:00 88 18 135/57 98 Nasal Cannula 4.0 08/28/16 22:30 65 16 118/58 99 Nasal Cannula 4.0 08/28/16 22:15 77 16 104/51 98 Nasal Cannula 4.0 08/28/16 22:10 66 16 106/51 98 Nasal Cannula 4.0 08/28/16 22:00 80 16 133/57 99 Nasal Cannula 4.0 08/28/16 21:45 86 18 126/123 98 Nasal Cannula 4.0 08/28/16 21:29 78 18 151/68 98 Nasal Cannula 4.0 08/28/16 21:14 84 20 175/78 91 08/28/16 21:10 128/95 08/28/16 21:09 78 23 98 08/28/16 21:04 70 14 175/130 100 08/28/16 21:04 74 08/28/16 21:00 171/99 08/28/16 20:59 58 15 172/106 99 Nasal Cannula 4.0 08/28/16 20:59 58 15 172/106 100 08/28/16 20:52 100 Nasal Cannula 4.0 08/28/16 20:49 75 14 203/98 98 Room Air 08/28/16 20:44 74 15 160/107 100 Nasal Cannula 4.0 08/28/16 20:40 72 203/98 General Appearance: mild distress, thin Head: normocephalic, atraumatic Eyes: sclerae normal, pupils unequal, other (sluggish pupils) ENT: other (normal inspection of ENT) Neck: normal range of motion, trachea midline, no stridor Respiratory: breath sounds normal, clear to auscultation, no respiratory distress Cardiovasular: normal S1S2, no M/G/R, normal peripheral pulses, irregular rate (tachycardic) Abdomen: non tender, normal bowel sounds Back: other (very large bruise on right shoulder, marked with pen) Upper Extremities: no edema, other (slight spasticity noted with passive ROM of right UE) Lower Extremities: no edema, other (no ankle clonus, some spasticity of right LE) Neuro: other (withdraws to pain, does not follow commands) Laboratory Results Last 24 Hours Test 08/28/16 20:31 08/28/16 20:35 08/28/16 20:37 08/28/16 20:55 White Blood Count 10.31 K/uL Red Blood Count 4.77 M/uL Hemoglobin 13.6 g/dL Hematocrit 41.2 % Mean Corpuscular Volume 86.4 fL Mean Corpuscular Hemoglobin 28.5 pg Mean Corpuscular Hemoglobin Concent 33.0 g/dl Platelet Count 231 K/uL Mean Platelet Volume 9.6 fL Neutrophils (%) (Auto) 70.8 % Lymphocytes (%) (Auto) 18.5 % Monocytes (%) (Auto) 9.8 % Eosinophils (%) (Auto) 0.3 % Basophils (%) (Auto) 0.1 % Neutrophils # (Auto) 7.30 K/uL Lymphocytes # (Auto) 1.91 K/uL Monocytes # (Auto) 1.01 K/uL Eosinophils # (Auto) 0.03 K/uL Basophils # (Auto) 0.01 K/uL RDW Standard Deviation 51.2 fL RDW Coefficient of Variation 16.2 % Immature Granulocyte % (Auto) 0.5 % Immature Granulocyte # (Auto) 0.05 K/uL Prothrombin Time 10.5 SECONDS Prothromb Time International Ratio 1.0 Activated Partial Thromboplast Time 19.6 SECONDS Partial Thromboplastin Ratio 0.8 Sodium Level 137 mmol/L Potassium Level 4.4 mmol/L Chloride Level 103 mmol/L Carbon Dioxide Level 28 mmol/L Anion Gap 6.0 mmol/L 18.0 mmol/L Blood Urea Nitrogen 22 mg/dl Creatinine 0.75 mg/dl Estimated GFR () 82.5 Estimated GFR (Non- 71.2 BUN/Creatinine Ratio 29.2 Random Glucose 126 mg/dl Calcium Level 8.6 mg/dl Total Bilirubin 0.4 mg/dl Direct Bilirubin < 0.1 mg/dl Aspartate Amino Transf (AST/SGOT) 18 U/L Alanine Aminotransferase (ALT/SGPT) 24 U/L Alkaline Phosphatase 61 U/L Total Creatine Kinase 137 U/L Creatine Kinase MB 3.2 ng/ml Creatine Kinase MB Ratio 2.3 Troponin I 0.017 ng/ml Total Protein 6.3 gm/dl Albumin 3.4 gm/dl Bedside Prothrombin Time INR 1.0 Bedside Hemoglobin 14.3 g/dl Bedside Hematocrit 42 % Bedside Sodium 139 mEq/L Bedside Potassium 4.6 mEq/L Bedside Chloride 104 mEq/L Bedside Total CO2 23 mEq/l Bedside Blood Urea Nitrogen 23 mg/dl Bedside Creatinine 0.7 mg/dl Bedside Glucose (other) 131 mg/dl Bedside Ionized Calcium (Latasha) 1.19 mmol/l Urine Color YELLOW Urine Appearance CLEAR Urine pH 7.0 Urine Specific [place] 1.009 Urine Protein NEG Urine Glucose (UA) NEG Urine Ketones NEG Urine Occult Blood 1+ Urine Nitrite NEG Urine Bilirubin NEG Urine Urobilinogen NEG Urine Leukocyte Esterase NEG Urine WBC (Auto) 1-5 /hpf Urine RBC (Auto) 5-10 /hpf Urine Hyaline Casts (Auto) 0 /lpf Urine Epithelial Cells (Auto) 10-20 /lpf Urine Bacteria (Auto) NEG Urine Opiates Screen NEG Urine Methadone, Qualitative NEG Urine Barbiturates NEG Urine Phencyclidine (PCP) Level NEG Ur Amphetamine/Methamphetamine NEG MDMA (Ecstasy) Screen NEG Urine Benzodiazepines Screen POS Urine Cocaine Metabolite NEG Urine Marijuana (THC) NEG Diagnostic Results HEAD CT NONCONTRAST CT DOSE: 537.48 mGy.cm HISTORY: Mental status change S/P TPA ADMINISTRATION FOR STROKE TECHNIQUE: Multiaxial CT images of the head were performed without the use of intravenous contrast. Comparison: 08/28/2016 Findings: The paranasal sinuses and mastoid air cells are clear. Interval development of a large hemorrhagic component involving the left hemisphere. This involves the left temporal parietal distribution. Posterior anterior lobe involvement is also noted. Greatest geographic extent is approximately 9 x 6 cm. Midline shift to the right is 1 cm. No definite extension to the right lateral ventricle although there is extension to the occipital horn left lateral ventricle. Third ventricle is displaced to the right. There is partial effacement of the quadrigeminal plate cistern as well as suprasellar cisterns. This would indicate developing pressure on the brainstem. Impression: 1. Interval development of a large left cerebral hemorrhage. 2. Midline shift to the right of 1 cm with evidence for intraventricular extension. 3. Geographic extent of the hemorrhage is probably 9 x 6 cm. 4. Effacement of the left cerebral sulci, as well as developing pressure on the brainstem with partial effacement of the suprasellar cisterns. [~ rep ct add3]] SINGLE VIEW CHEST CLINICAL HISTORY: Aspiration. Stroke. FINDINGS: An AP, portable, semierect chest radiograph is compared to study dated 08/28/2016. The heart is top normal for projection and there is atherosclerotic calcification of the thoracic aorta. Chronic interstitial thickening is unchanged, as is elevation of left hemidiaphragm. There is minimal bibasilar atelectasis. No airspace consolidation is identified typical for pneumonia and there is no large pleural effusion. No pneumothorax is seen. The skeletal structures are osteopenic. Degenerative change and scoliosis are noted in the thoracic spine. 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 IMPRESSION: No acute cardiopulmonary abnormality and no significant change from yesterday. CHEST ONE VIEW PORTABLE CLINICAL HISTORY: Stroke COMPARISON STUDY: Chest radiograph February 09, 2015 FINDINGS: S-shaped scoliosis of the thoracolumbar spine and elevation of the left hemidiaphragm is again noted. Elevation of both humeral heads suggest chronic rotator cuff tears. There is an old fracture the distal left clavicle. No pneumothorax or pleural effusion is present. There is no consolidation or evidence of pulmonary edema. Cardiac size is within normal limits. A skinfold projects over the left hemithorax. IMPRESSION: 1. No acute findings. No change in appearance of the chest. 2. Stable elevation of the left hemidiaphragm. 3. Moderate scoliosis of the thoracolumbar spine. CT OF THE HEAD WITHOUT CONTRAST CLINICAL HISTORY: Stroke COMPARISON STUDY: No previous studies for comparison. CT DOSE: 2432.49 mGy.cm TECHNIQUE: Helical axial images of the head were obtained without IV contrast. Automated exposure control was utilized for the study. FINDINGS: This exam is moderately compromised by motion artifact. There is no acute intracranial hemorrhage, midline shift or mass effect. Mild ventricular dilatation is likely due to atrophy. There are no extra-axial collections. There is possible loss of andrews-white differentiation within the left parietal, frontal and temporal lobes. There are postsurgical findings within the left maxillary sinus with wall thickening. There is moderate mucosal thickening of the sinuses. There is no calvarial fracture although sensitivity is diminished on this exam due to motion artifact. IMPRESSION: 1. No acute intracranial hemorrhage. 2. Study moderately by by motion artifact. Possible loss of andrews-white differentiation within portions of the left frontal, temporal and parietal lobes. This could reflect an acute infarct although is suboptimally assessed due to motion artifact. Assessment & Plan 1. Metabolic encephalopathy secondary to acute left sided stroke s/p tpa complicated by left sided intracranial hemorrhage with a right midline shift 2. Elevated blood pressure secondary to ICA- permissive htn 3. Rheumatoid Arthritis 4. Anxiety/ Depression 5. Hypothyroidism 6. GERD 7. Glaucoma NVS - DNR/ DNI - discussion for comfort measures, worsening mental status secondary to midline shift/ intracranial hemm- awaiting confirmation - Ativan 1 mg q 1h for agitation - Morphine prn - home Xanax and sertraline held - Home Duragesic patch held [facility] - Labetalol prn for systolic > 185/110 GI NPO - lozada catheter has been placed MSK - MTX held - Had a low dose daily prednisone which has also been held ENDO Synthroid has been held Resident Physician Supervision Note: I interviewed and examined the patient. Discussed with Dr. Dow and agree with findings and plan as documented in the note. Any exceptions or clarifications are listed here: The case discussed. Bleeding and subsequent decline noted. Agree with the comfort approach given the lethal event. Documented By: Jefferson Sims Additional Copies To Maria Eugenia Lynne M.D.
--- NOTE | 2016-08-29 10:43 | Critical Care Progress Note ---
Critical Care Progress Note Date of Service Aug 29, 2016. Attending Subjective She unfortunately developed profound neuro decline consistent with ICH. The CT confirmed the emergence of a large ICH. She is terminally ill. I spoke with family and instituted comfort measures. Objective Vitals--tachy with tachypnea HEENT--left pupil enlarged Respiratory--exchange is fair Cardio--rate rapid, perfusion is poor GI--nontender Neuro--progressive decline secondary to her ICH Assessment & Plan Stroke and ICH--TPA given 1. Neuro--catastrophic decline secondary to ICH--Condition is grave. Comfort measures in place. Critical Care Time--90 minutes Data Medications: Current Inpatient Medications Medications (Trade) Dose Ordered Sig/Joseph Route Start Time Stop Time Status Last Admin Dose Admin Pantoprazole Sodium/Syringe (Protonix Inj/ Syringe) 10 ml @ 5 mls/min DAILY@11 IV 08/29/16 11:00 09/28/16 10:59 08/29/16 10:15 5 MLS/MIN Labetalol HCl (Normodyne IV) 10 mg Q1H PRN IV 08/28/16 23:45 09/27/16 23:44 08/29/16 08:31 10 MG Miscellaneous Information 1 ea 1 ea UD PRN N/A 08/29/16 00:00 09/28/16 00:00 Acetaminophen/ Empty Bag (Ofirmev IV/ Empty Iv Bag 100ml) 65 ml @ 260 mls/hr Q6H PRN IV 08/29/16 07:00 09/28/16 06:59 08/29/16 08:54 260 MLS/HR Lorazepam (Ativan Inj) 1 mg Q1H PRN IV 08/29/16 09:15 09/28/16 09:14 08/29/16 10:18 1 MG Morphine Sulfate (MoRPHine SULFATE INJ) 2 mg Q2H PRN IV 08/29/16 08:45 09/12/16 08:44 08/29/16 09:28 2 MG I & O: 24-Hour Column 08/29/16 08:00 Output Total 1900 ml Balance -1900 ml Vital Signs: Date Time Temp Pulse Resp B/P Pulse Ox O2 Delivery O2 Flow Rate FiO2 08/29/16 10:00 36.5 90 24 161/63 97 08/29/16 09:00 37.1 84 23 174/97 97 08/29/16 08:00 Room Air 08/29/16 08:00 36.8 81 22 172/108 96 08/29/16 08:00 Room Air 08/29/16 07:30 92 24 174/102 96 08/29/16 07:00 78 159/109 08/29/16 07:00 36.9 94 26 179/104 97 08/29/16 06:30 37.8 89 22 202/99 97 Room Air 08/29/16 05:30 37.2 79 20 185/102 96 Room Air 08/29/16 04:30 36.5 81 20 161/75 98 Room Air 08/29/16 04:00 78 24 149/88 98 Room Air 08/29/16 04:00 98 Room Air 08/29/16 03:30 36.5 87 26 189/136 97 Room Air 08/29/16 03:00 67 15 97 08/29/16 02:59 70 17 131/72 95 08/29/16 02:45 87 21 97 08/29/16 02:30 36.7 81 22 167/92 96 Room Air 08/29/16 02:30 79 21 97 08/29/16 02:29 78 24 167/92 97 08/29/16 02:15 79 20 98 08/29/16 02:00 88 18 173/125 97 08/29/16 01:45 84 19 96 08/29/16 01:33 84 24 182/85 96 08/29/16 01:30 89 18 98 08/29/16 01:30 36.7 79 20 182/85 98 Room Air 08/29/16 01:29 93 19 190/108 94 08/29/16 01:15 82 16 98 08/29/16 01:00 76 14 97 08/29/16 00:59 82 22 143/86 96 08/29/16 00:45 82 24 96 08/29/16 00:30 92 15 97 08/29/16 00:30 36.6 81 20 172/106 98 Room Air 08/29/16 00:29 86 13 172/106 91 08/29/16 00:16 69 14 149/69 96 08/29/16 00:15 65 18 98 08/28/16 23:55 36.6 67 16 149/69 97 Room Air 08/28/16 23:30 75 16 114/73 99 Nasal Cannula 4.0 08/28/16 23:00 88 18 135/57 98 Nasal Cannula 4.0 08/28/16 22:30 65 16 118/58 99 Nasal Cannula 4.0 08/28/16 22:15 77 16 104/51 98 Nasal Cannula 4.0 08/28/16 22:10 66 16 106/51 98 Nasal Cannula 4.0 08/28/16 22:00 80 16 133/57 99 Nasal Cannula 4.0 08/28/16 21:45 86 18 126/123 98 Nasal Cannula 4.0 08/28/16 21:29 78 18 151/68 98 Nasal Cannula 4.0 08/28/16 21:14 84 20 175/78 91 08/28/16 21:10 128/95 08/28/16 21:09 78 23 98 08/28/16 21:04 70 14 175/130 100 08/28/16 21:04 74 08/28/16 21:00 171/99 08/28/16 20:59 58 15 172/106 99 Nasal Cannula 4.0 08/28/16 20:59 58 15 172/106 100 08/28/16 20:52 100 Nasal Cannula 4.0 08/28/16 20:49 75 14 203/98 98 Room Air 08/28/16 20:44 74 15 160/107 100 Nasal Cannula 4.0 08/28/16 20:40 72 203/98 Laboratory Results: Last 24 Hours Test 08/28/16 20:31 08/28/16 20:35 08/28/16 20:37 08/28/16 20:55 White Blood Count 10.31 K/uL Red Blood Count 4.77 M/uL Hemoglobin 13.6 g/dL Hematocrit 41.2 % Mean Corpuscular Volume 86.4 fL Mean Corpuscular Hemoglobin 28.5 pg Mean Corpuscular Hemoglobin Concent 33.0 g/dl Platelet Count 231 K/uL Mean Platelet Volume 9.6 fL Neutrophils (%) (Auto) 70.8 % Lymphocytes (%) (Auto) 18.5 % Monocytes (%) (Auto) 9.8 % Eosinophils (%) (Auto) 0.3 % Basophils (%) (Auto) 0.1 % Neutrophils # (Auto) 7.30 K/uL Lymphocytes # (Auto) 1.91 K/uL Monocytes # (Auto) 1.01 K/uL Eosinophils # (Auto) 0.03 K/uL Basophils # (Auto) 0.01 K/uL RDW Standard Deviation 51.2 fL RDW Coefficient of Variation 16.2 % Immature Granulocyte % (Auto) 0.5 % Immature Granulocyte # (Auto) 0.05 K/uL Prothrombin Time 10.5 SECONDS Prothromb Time International Ratio 1.0 Activated Partial Thromboplast Time 19.6 SECONDS Partial Thromboplastin Ratio 0.8 Sodium Level 137 mmol/L Potassium Level 4.4 mmol/L Chloride Level 103 mmol/L Carbon Dioxide Level 28 mmol/L Anion Gap 6.0 mmol/L 18.0 mmol/L Blood Urea Nitrogen 22 mg/dl Creatinine 0.75 mg/dl Estimated GFR () 82.5 Estimated GFR (Non- 71.2 BUN/Creatinine Ratio 29.2 Random Glucose 126 mg/dl Calcium Level 8.6 mg/dl Total Bilirubin 0.4 mg/dl Direct Bilirubin < 0.1 mg/dl Aspartate Amino Transf (AST/SGOT) 18 U/L Alanine Aminotransferase (ALT/SGPT) 24 U/L Alkaline Phosphatase 61 U/L Total Creatine Kinase 137 U/L Creatine Kinase MB 3.2 ng/ml Creatine Kinase MB Ratio 2.3 Troponin I 0.017 ng/ml Total Protein 6.3 gm/dl Albumin 3.4 gm/dl Bedside Prothrombin Time INR 1.0 Bedside Hemoglobin 14.3 g/dl Bedside Hematocrit 42 % Bedside Sodium 139 mEq/L Bedside Potassium 4.6 mEq/L Bedside Chloride 104 mEq/L Bedside Total CO2 23 mEq/l Bedside Blood Urea Nitrogen 23 mg/dl Bedside Creatinine 0.7 mg/dl Bedside Glucose (other) 131 mg/dl Bedside Ionized Calcium (Latasha) 1.19 mmol/l Urine Color YELLOW Urine Appearance CLEAR Urine pH 7.0 Urine Specific [place] 1.009 Urine Protein NEG Urine Glucose (UA) NEG Urine Ketones NEG Urine Occult Blood 1+ Urine Nitrite NEG Urine Bilirubin NEG Urine Urobilinogen NEG Urine Leukocyte Esterase NEG Urine WBC (Auto) 1-5 /hpf Urine RBC (Auto) 5-10 /hpf Urine Hyaline Casts (Auto) 0 /lpf Urine Epithelial Cells (Auto) 10-20 /lpf Urine Bacteria (Auto) NEG Urine Opiates Screen NEG Urine Methadone, Qualitative NEG Urine Barbiturates NEG Urine Phencyclidine (PCP) Level NEG Ur Amphetamine/Methamphetamine NEG MDMA (Ecstasy) Screen NEG Urine Benzodiazepines Screen POS Urine Cocaine Metabolite NEG Urine Marijuana (THC) NEG
[2016-08-29] MEDS ORDERED: PANTOprazole INJ 40 MG in SYRINGE 0 ML IV SCH (11:00)
[2016-08-29] MEDS ORDERED: LORAZEPAM 1 MG TAB SL PRN ×2 (11:45→12:45)
[2016-08-29] MEDS ORDERED: MoRPHine SULFATE 5 MG/0.25 ML UDP PO PRN (11:45)
[2016-08-29] MEDS ORDERED: SCOPOLAMINE 1.5 MG TDSY TD ONE (12:15)
--- NOTE | 2016-08-29 14:11 | Neurology Consultation ---
Neurology Consultation Date of Consultation: Aug 29, 2016. Attending Physician: Beryl Darling MD Primary Care Physician: Maria Eugenia Lynne M.D. Reason for Consultation: cva administer of TPA History of Present Illness Source: family Carrion is an 86 year old female who had a sudden event of aphasia and right sided facial droop and right sided weakness. She was seen in the ED and evaluated by [facility] neurology consult. CT indicated left sided stroke involving the frontal, temporal and parietal region and was given tPa given at approx 2030. There was no improvement with administration. She was then transferred to the ICU. Her daughter is currently bedside and states she is on comfort care. Past Medical/Surgical History Medical Problems: (1) Acute cerebrovascular accident (CVA) Status: Acute Social History Alcohol Use: socially Marital Status: Housing Status: lives with family Occupation Status: retired Allergies Coded Allergies: No Known Allergies (Unverified , 02/09/15) Current Inpatient Medications Current Inpatient Medications Medications (Trade) Dose Ordered Sig/Joseph Route Start Time Stop Time Status Last Admin Dose Admin Acetaminophen/ Empty Bag (Ofirmev IV/ Empty Iv Bag 100ml) 65 ml @ 260 mls/hr Q6H PRN IV 08/29/16 07:00 09/28/16 06:59 08/29/16 08:54 260 MLS/HR Lorazepam (Ativan Inj) 1 mg Q1H PRN IV 08/29/16 09:15 09/28/16 09:14 08/29/16 10:18 1 MG Morphine Sulfate (MoRPHine SULFATE INJ) 2 mg Q2H PRN IV 08/29/16 08:45 09/12/16 08:44 08/29/16 13:45 2 MG Morphine Sulfate (Roxanol Oral Soln) 5 mg Q1HWA PRN PO 08/29/16 11:45 09/12/16 11:44 Scopolamine (Transderm-Scop Patch) 1.5 mg Q3D@0900 TD 09/01/16 09:00 10/01/16 08:59 Miscellaneous (Remove Transderm-Scop Patch) 1 ea Q3D@0859 N/A 09/01/16 08:59 10/01/16 08:58 Miscellaneous Information (Check Scopolamine Patch Placement) 1 ea QS N/A 08/29/16 16:00 09/28/16 15:59 Lorazepam (Ativan Tab) 1 mg Q3H PRN SL 08/29/16 12:45 09/28/16 11:44 Physical Exam Vital Signs (Past 24 Hrs): Date Time Temp Pulse Resp B/P Pulse Ox O2 Delivery O2 Flow Rate FiO2 08/29/16 12:00 Room Air 08/29/16 11:00 36.5 94 26 151/92 97 08/29/16 10:00 36.5 90 24 161/63 97 08/29/16 09:00 37.1 84 23 174/97 97 08/29/16 08:00 Room Air 08/29/16 08:00 36.8 81 22 172/108 96 08/29/16 08:00 Room Air 08/29/16 07:30 92 24 174/102 96 08/29/16 07:00 78 159/109 08/29/16 07:00 36.9 94 26 179/104 97 08/29/16 06:30 37.8 89 22 202/99 97 Room Air 08/29/16 05:30 37.2 79 20 185/102 96 Room Air 08/29/16 04:30 36.5 81 20 161/75 98 Room Air 08/29/16 04:00 78 24 149/88 98 Room Air 08/29/16 04:00 98 Room Air 08/29/16 03:30 36.5 87 26 189/136 97 Room Air 08/29/16 03:00 67 15 97 08/29/16 02:59 70 17 131/72 95 08/29/16 02:45 87 21 97 08/29/16 02:30 36.7 81 22 167/92 96 Room Air 08/29/16 02:30 79 21 97 08/29/16 02:29 78 24 167/92 97 08/29/16 02:15 79 20 98 08/29/16 02:00 88 18 173/125 97 08/29/16 01:45 84 19 96 08/29/16 01:33 84 24 182/85 96 08/29/16 01:30 89 18 98 08/29/16 01:30 36.7 79 20 182/85 98 Room Air 08/29/16 01:29 93 19 190/108 94 08/29/16 01:15 82 16 98 08/29/16 01:00 76 14 97 2/27/17 00:59 82 22 143/86 96 08/29/16 00:45 82 24 96 08/29/16 00:30 92 15 97 08/29/16 00:30 36.6 81 20 172/106 98 Room Air 08/29/16 00:29 86 13 172/106 91 08/29/16 00:16 69 14 149/69 96 08/29/16 00:15 65 18 98 08/28/16 23:55 36.6 67 16 149/69 97 Room Air 08/28/16 23:30 75 16 114/73 99 Nasal Cannula 4.0 08/28/16 23:00 88 18 135/57 98 Nasal Cannula 4.0 08/28/16 22:30 65 16 118/58 99 Nasal Cannula 4.0 08/28/16 22:15 77 16 104/51 98 Nasal Cannula 4.0 08/28/16 22:10 66 16 106/51 98 Nasal Cannula 4.0 08/28/16 22:00 80 16 133/57 99 Nasal Cannula 4.0 08/28/16 21:45 86 18 126/123 98 Nasal Cannula 4.0 08/28/16 21:29 78 18 151/68 98 Nasal Cannula 4.0 08/28/16 21:14 84 20 175/78 91 08/28/16 21:10 128/95 08/28/16 21:09 78 23 98 08/28/16 21:04 70 14 175/130 100 08/28/16 21:04 74 08/28/16 21:00 171/99 08/28/16 20:59 58 15 172/106 99 Nasal Cannula 4.0 08/28/16 20:59 58 15 172/106 100 08/28/16 20:52 100 Nasal Cannula 4.0 08/28/16 20:49 75 14 203/98 98 Room Air 08/28/16 20:44 74 15 160/107 100 Nasal Cannula 4.0 08/28/16 20:40 72 203/98 Gen: not alert to stimulation eyes bilaterally reactive doll eyes lungs rales bilaterall CV irregular irregular moves left with stimulation spontaneously jerks in LE Laboratory Results Past 24 Hours: 08/28/16 20:31 Red Blood Count 4.77, Mean Corpuscular Volume 86.4, Mean Corpuscular Hemoglobin 28.5, Mean Corpuscular Hemoglobin Concent 33.0, Mean Platelet Volume 9.6, Neutrophils (%) (Auto) 70.8, Lymphocytes (%) (Auto) 18.5, Monocytes (%) (Auto) 9.8, Eosinophils (%) (Auto) 0.3, Basophils (%) (Auto) 0.1, Neutrophils # (Auto) 7.30, Lymphocytes # (Auto) 1.91, Monocytes # (Auto) 1.01, Eosinophils # (Auto) 0.03, Basophils # (Auto) 0.01 08/28/16 20:31 Test 08/28/16 20:31 08/28/16 20:35 08/28/16 20:37 08/28/16 20:55 White Blood Count 10.31 K/uL (4.8-10.8) Red Blood Count 4.77 M/uL (4.2-5.4) Hemoglobin 13.6 g/dL (12.0-16.0) Hematocrit 41.2 % (37-47) Mean Corpuscular Volume 86.4 fL (80-100) Mean Corpuscular Hemoglobin 28.5 pg (25-34) Mean Corpuscular Hemoglobin Concent 33.0 g/dl (32-36) Platelet Count 231 K/uL (130-400) Mean Platelet Volume 9.6 fL (7.4-10.4) Neutrophils (%) (Auto) 70.8 % Lymphocytes (%) (Auto) 18.5 % Monocytes (%) (Auto) 9.8 % Eosinophils (%) (Auto) 0.3 % Basophils (%) (Auto) 0.1 % Neutrophils # (Auto) 7.30 K/uL (1.4-6.5) Lymphocytes # (Auto) 1.91 K/uL (1.2-3.4) Monocytes # (Auto) 1.01 K/uL (0.11-0.59) Eosinophils # (Auto) 0.03 K/uL (0-0.5) Basophils # (Auto) 0.01 K/uL (0-0.2) RDW Standard Deviation 51.2 fL (36.4-46.3) RDW Coefficient of Variation 16.2 % (11.5-14.5) Immature Granulocyte % (Auto) 0.5 % Immature Granulocyte # (Auto) 0.05 K/uL (0.00-0.02) Prothrombin Time 10.5 SECONDS (9.0-12.0) Prothromb Time International Ratio 1.0 (0.9-1.1) Activated Partial Thromboplast Time 19.6 SECONDS (21.0-31.0) Partial Thromboplastin Ratio 0.8 Estimated GFR () 82.5 Estimated GFR (Non- 71.2 BUN/Creatinine Ratio 29.2 (10-20) Calcium Level 8.6 mg/dl (8.5-10.1) Total Bilirubin 0.4 mg/dl (0.2-1) Direct Bilirubin < 0.1 mg/dl (0-0.2) Aspartate Amino Transf (AST/SGOT) 18 U/L (15-37) Alanine Aminotransferase (ALT/SGPT) 24 U/L (12-78) Alkaline Phosphatase 61 U/L (45-117) Total Creatine Kinase 137 U/L (26-192) Creatine Kinase MB 3.2 ng/ml (0.5-3.6) Creatine Kinase MB Ratio 2.3 (0-3.0) Troponin I 0.017 ng/ml (0-0.045) Total Protein 6.3 gm/dl (6.4-8.2) Albumin 3.4 gm/dl (3.4-5.0) Bedside Prothrombin Time INR 1.0 (0.9-1.1) Bedside Hemoglobin 14.3 g/dl (12.0-16.0) Bedside Hematocrit 42 % (37-47) Bedside Sodium 139 mEq/L (135-144) Bedside Potassium 4.6 mEq/L (3.3-5.0) Bedside Chloride 104 mEq/L (101-112) Bedside Total CO2 23 mEq/l (24-31) Anion Gap 18.0 mmol/L (16-25) Bedside Blood Urea Nitrogen 23 mg/dl (7-18) Bedside Creatinine 0.7 mg/dl (0.6-1.3) Bedside Glucose (other) 131 mg/dl (70-99) Bedside Ionized Calcium (Latasha) 1.19 mmol/l (1.12-1.32) Urine Color YELLOW Urine Appearance CLEAR (CLEAR) Urine pH 7.0 (4.5-7.5) Urine Specific [place] 1.009 (1.000-1.030) Urine Protein NEG (NEG) Urine Glucose (UA) NEG (NEG) Urine Ketones NEG (NEG) Urine Occult Blood 1+ (NEG) Urine Nitrite NEG (NEG) Urine Bilirubin NEG (NEG) Urine Urobilinogen NEG (NEG) Urine Leukocyte Esterase NEG (NEG) Urine WBC (Auto) 1-5 /hpf (0-5) Urine RBC (Auto) 5-10 /hpf (0-4) Urine Hyaline Casts (Auto) 0 /lpf (0-5) Urine Epithelial Cells (Auto) 10-20 /lpf (0-5) Urine Bacteria (Auto) NEG (NEG) Urine Opiates Screen NEG (NEG) Urine Methadone, Qualitative NEG (NEG) Urine Barbiturates NEG (NEG) Urine Phencyclidine (PCP) Level NEG (NEG) Ur Amphetamine/Methamphetamine NEG (NEG) MDMA (Ecstasy) Screen NEG (NEG) Urine Benzodiazepines Screen POS (NEG) Urine Cocaine Metabolite NEG (NEG) Urine Marijuana (THC) NEG (NEG) Date/Time Source Procedure Growth Status 08/29/16 00:01 Nasal MRSA DNA Surveillance Screen - Final Specimen Negative for MRSA by DNA Probe Complete Imaging CT head- 1 st No acute intracranial hemorrhage. Study moderately by by motion artifact. Possible loss of andrews-white differentiation within portions of the left frontal, temporal and parietal lobes. This could reflect an acute infarct although is suboptimally assessed due to motion artifact. CT head - 2nd - Interval development of a large left cerebral hemorrhage. Midline shift to the right of 1 cm with evidence for intraventricular extension. Geographic extent of the hemorrhage is probably 9 x 6 cm. Effacement of the left cerebral sulci, as well as developing pressure on the brainstem with partial effacement of the suprasellar cisterns. Impression 86 year old female with right side weakness, facial droop, tPa administered and hemorrhagic conversion Plan 1. family requesting comfort care 2. no further intervention 3. condolences offered to family 4. will be available for any questions or concerns. I have seen and discussed above patient with Dr Ying Hanley, neurologys Pt seen and examined. Images reviewed. Initial CT with loss andrews-white differentiation in L hemisp with hyperdense L MCA sign. Today massive heme conversion with hematoma, left to right shift, Pt unarousalbe, moves L arm and L leg spontaneously. Eye movements conjugate and roving. OS greater than OD. No papilledema. No grimace to painful stim. No withdrawal RUE, min withdrawl RLE, brisk reflexes, R toe up. 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 Prognosis grim. Comfort care recommended, MD Adam
[2016-08-29] MEDS: CHECK SCOPOLAMINE PATCH PLACEMENT SCH (16:41)
--- NOTE | 2016-08-29 17:56 | ECHOCARDIOGRAM REPORT ---
*NOTICE TO RECEIVING LIBERTARIAN AGENCY This information is strictly Confidential and protected under [place] law. [place] law prohibits you from making any further disclosure of this information unless further disclosure is expressly permitted by the written consent of the person to whom it pertains or is authorized by law. A general authorization for the release of medical or other information is not sufficient for this purpose. Hospital accepts no responsibility if the information is made available to any other person, INCLUDING THE PATIENT. Interpretation Summary * Patient moving all around and could not follow commands * Name: EKTA CASIANO Study Date: 08/29/2016 06:43 AM * Patient Location: .[facility]\S\[facility]\S\1 * : 1930 (M/d/yyyy) Gender: Female Height: 58 in * Age: 86 yrs Ethnicity: CA Weight: 110 lb * Ordering Physician: Ashia Fitzpatrick * Referring Physician: Self, Referred * Performed By: Graciela Woods RDCS * * Reason For Study: Cerebral Ischemia/Embolus * BSA: 1.4 m2 * History: CEREBRAL ISCHEMIA/ EMBOLUS * The study was technically limited. * The study was technically difficult. * Compared to prior study, changes are noted. * -- Conclusions -- * Ejection Fraction = 65-70%. * There is moderate to severe mitral regurgitation. * Moderate aortic regurgitation. * There is mild tricuspid regurgitation. * Doppler findings do not suggest pulmonary hypertension. Procedure Details * A contrast injection of Definity was performed to improve assessment of LV function. * Contrast was injected into an intravenous site in the left arm. * One vial of Definity ultrasound contrast was diluted in normal saline to a total volume of 10 ml. A total of '3' ml of solution was administered during imaging. * Lot # [id number] of Definity utilized for procedure. * Expiration date JUL 20. * The attending nurse who injected the contrast agent was RACQUEL DELONG. * A complete two-dimensional transthoracic echocardiogram was performed (2D, M-mode, Doppler and color flow Doppler). Left Ventricle * The left ventricle is normal in size. * There is no thrombus. * There is normal left ventricular wall thickness. * Ejection Fraction = 65-70%. * Left ventricular systolic function is normal. * No regional wall motion abnormalities noted. Right Ventricle * The right ventricle is grossly normal size. * The right ventricular systolic function is qualitatively normal. Atria * The left atrium is moderately dilated. * Right atrial size is normal. * There is no evidence of atrial septal defect, but resolution does not allow assessment for a patent foramen ovale. Mitral Valve * The mitral valve is not well visualized. * There is no mitral valve stenosis. * There is moderate to severe mitral regurgitation. Tricuspid Valve * The tricuspid valve is not well visualized. * There is no tricuspid stenosis. * There is mild tricuspid regurgitation. * Doppler findings do not suggest pulmonary hypertension. Aortic Valve * The aortic valve is not well visualized. * Aortic stenosis is absent. * Moderate aortic regurgitation. Pulmonic Valve * The pulmonary valve is not well seen, but the Doppler examination is normal without significant regurgitation or stenosis. Great Vessels * The aortic root is normal size. Pericardium/Pleural * There is no pericardial effusion. Great Vessels * Normal inferior vena cava diameter and respiratory variation suggests normal central venous pressure. Left Ventricular Diastolic Function * Grade I diastolic dysfunction, (abnormal relaxation pattern). MMode 2D Measurements and Calculations IVSd 0.93 cm IVSs 1.2 cm LVIDd 3.6 cm LVIDs 2.6 cm LVPWd 0.90 cm LVPWs 1.2 cm IVS/LVPW 1.0 FS 28.8 % EDV(Teich) 55.4 ml ESV(Teich) 24.2 ml EF(Teich) 56.4 % EDV(cubed) 47.7 ml ESV(cubed) 17.2 ml EF(cubed) 63.9 % % IVS thick 33.3 % % LVPW thick 32.8 % LV mass(C)d 96.1 grams LV mass(C)dI 68.0 grams/m\S\2 LV mass(C)s 91.3 grams LV mass(C)sI 64.6 grams/m\S\2 SV(Teich) 31.2 ml SI(Teich) 22.1 ml/m\S\2 SV(cubed) 30.5 ml SI(cubed) 21.6 ml/m\S\2 Ao root diam 3.2 cm Ao root area 8.3 cm\S\2 LA dimension 4.2 cm LA/Ao 1.3 LVAd ap4 25.5 cm\S\2 LVLd ap4 6.9 cm EDV(MOD-sp4) 79.5 ml EDV(sp4-el) 80.0 ml LVAs ap4 14.2 cm\S\2 LVLs ap4 5.2 cm ESV(MOD-sp4) 34.4 ml ESV(sp4-el) 32.7 ml EF(MOD-sp4) 56.8 % EF(sp4-el) 59.1 % LVAd ap2 17.6 cm\S\2 LVLd ap2 7.0 cm EDV(MOD-sp2) 37.4 ml EDV(sp2-el) 37.5 ml LVAs ap2 11.1 cm\S\2 LVLs ap2 6.1 cm ESV(MOD-sp2) 18.7 ml ESV(sp2-el) 17.1 ml EF(MOD-sp2) 49.8 % EF(sp2-el) 54.5 % LVLd %diff 0.85 % EDV(MOD-bp) 53.8 ml LVLs %diff 14.5 % ESV(MOD-bp) 26.4 ml EF(MOD-bp) 50.9 % SV(MOD-sp4) 45.1 ml SI(MOD-sp4) 31.9 ml/m\S\2 SV(MOD-sp2) 18.6 ml SI(MOD-sp2) 13.2 ml/m\S\2 SV(MOD-bp) 27.4 ml SI(MOD-bp) 19.4 ml/m\S\2 SV(sp4-el) 47.3 ml SI(sp4-el) 33.5 ml/m\S\2 SV(sp2-el) 20.5 ml SI(sp2-el) 14.5 ml/m\S\2 Doppler Measurements and Calculations MV E max ana 49.0 cm/sec MV A max ana 78.6 cm/sec MV E/A 0.62 MV dec time 0.18 sec Ao V2 max 129.2 cm/sec Ao max PG 6.7 mmHg Ao max PG (full) 4.0 mmHg LV V1 max PG 2.7 mmHg LV V1 max 81.5 cm/sec TR max ana 273.5 cm/sec
--- NOTE | 2016-08-29 19:47 | Progress Note ---
Medicine Progress Note Date & Time of Visit: Aug 29, 2016 at 19:42. Subjective Patient seen and examined. Unresponsive. Comfort measures only at this time. Objective Last 8 Hrs Date Time Temp Pulse Resp B/P Pulse Ox O2 Delivery O2 Flow Rate FiO2 08/29/16 16:00 Room Air 08/29/16 14:14 37.2 93 24 97 08/29/16 12:00 Room Air Physical Exam: General-unresponsive Toumn-Qqnmjb-gasftu respirations Laboratory Results: Last 24 Hours Test 08/28/16 20:31 08/28/16 20:35 08/28/16 20:37 08/28/16 20:55 White Blood Count 10.31 K/uL Red Blood Count 4.77 M/uL Hemoglobin 13.6 g/dL Hematocrit 41.2 % Mean Corpuscular Volume 86.4 fL Mean Corpuscular Hemoglobin 28.5 pg Mean Corpuscular Hemoglobin Concent 33.0 g/dl Platelet Count 231 K/uL Mean Platelet Volume 9.6 fL Neutrophils (%) (Auto) 70.8 % Lymphocytes (%) (Auto) 18.5 % Monocytes (%) (Auto) 9.8 % Eosinophils (%) (Auto) 0.3 % Basophils (%) (Auto) 0.1 % Neutrophils # (Auto) 7.30 K/uL Lymphocytes # (Auto) 1.91 K/uL Monocytes # (Auto) 1.01 K/uL Eosinophils # (Auto) 0.03 K/uL Basophils # (Auto) 0.01 K/uL RDW Standard Deviation 51.2 fL RDW Coefficient of Variation 16.2 % Immature Granulocyte % (Auto) 0.5 % Immature Granulocyte # (Auto) 0.05 K/uL Prothrombin Time 10.5 SECONDS Prothromb Time International Ratio 1.0 Activated Partial Thromboplast Time 19.6 SECONDS Partial Thromboplastin Ratio 0.8 Sodium Level 137 mmol/L Potassium Level 4.4 mmol/L Chloride Level 103 mmol/L Carbon Dioxide Level 28 mmol/L Anion Gap 6.0 mmol/L 18.0 mmol/L Blood Urea Nitrogen 22 mg/dl Creatinine 0.75 mg/dl Estimated GFR () 82.5 Estimated GFR (Non- 71.2 BUN/Creatinine Ratio 29.2 Random Glucose 126 mg/dl Calcium Level 8.6 mg/dl Total Bilirubin 0.4 mg/dl Direct Bilirubin < 0.1 mg/dl Aspartate Amino Transf (AST/SGOT) 18 U/L Alanine Aminotransferase (ALT/SGPT) 24 U/L Alkaline Phosphatase 61 U/L Total Creatine Kinase 137 U/L Creatine Kinase MB 3.2 ng/ml Creatine Kinase MB Ratio 2.3 Troponin I 0.017 ng/ml Total Protein 6.3 gm/dl Albumin 3.4 gm/dl Bedside Prothrombin Time INR 1.0 Bedside Hemoglobin 14.3 g/dl Bedside Hematocrit 42 % Bedside Sodium 139 mEq/L Bedside Potassium 4.6 mEq/L Bedside Chloride 104 mEq/L Bedside Total CO2 23 mEq/l Bedside Blood Urea Nitrogen 23 mg/dl Bedside Creatinine 0.7 mg/dl Bedside Glucose (other) 131 mg/dl Bedside Ionized Calcium (Latasha) 1.19 mmol/l Urine Color YELLOW Urine Appearance CLEAR Urine pH 7.0 Urine Specific [place] 1.009 Urine Protein NEG Urine Glucose (UA) NEG Urine Ketones NEG Urine Occult Blood 1+ Urine Nitrite NEG Urine Bilirubin NEG Urine Urobilinogen NEG Urine Leukocyte Esterase NEG Urine WBC (Auto) 1-5 /hpf Urine RBC (Auto) 5-10 /hpf Urine Hyaline Casts (Auto) 0 /lpf Urine Epithelial Cells (Auto) 10-20 /lpf Urine Bacteria (Auto) NEG Urine Opiates Screen NEG Urine Methadone, Qualitative NEG Urine Barbiturates NEG Urine Phencyclidine (PCP) Level NEG Ur Amphetamine/Methamphetamine NEG MDMA (Ecstasy) Screen NEG Urine Benzodiazepines Screen POS Urine Cocaine Metabolite NEG Urine Marijuana (THC) NEG Date/Time Source Procedure Growth Status 08/29/16 00:01 Nasal MRSA DNA Surveillance Screen - Final Specimen Negative for MRSA by DNA Probe Complete Assessment & Plan Patient admitted with acute CVA Acute CVA - received TPA - hemorrhagic conversion of stroke - Neurology consulted - comfort measures only at this time No blood draws, no vitals. Comfort measures with morphine, lorazepam and scopolamine patch. Consultants: Neurology Critical care Procedures: CT head 1. No acute intracranial hemorrhage. 2. Study moderately by by motion artifact. Possible loss of andrews-white differentiation within portions of the left frontal, temporal and parietal lobes. This could reflect an acute infarct although is suboptimally assessed due to motion artifact. Repeat CT head 1. Interval development of a large left cerebral hemorrhage. 2. Midline shift to the right of 1 cm with evidence for intraventricular extension. 3. Geographic extent of the hemorrhage is probably 9 x 6 cm. 4. Effacement of the left cerebral sulci, as well as developing pressure on the brainstem with partial effacement of the suprasellar cisterns. Current Inpatient Medications: Current Inpatient Medications Medications (Trade) Dose Ordered Sig/Joseph Route Start Time Stop Time Status Last Admin Dose Admin Acetaminophen/ Empty Bag (Ofirmev IV/ Empty Iv Bag 100ml) 65 ml @ 260 mls/hr Q6H PRN IV 08/29/16 07:00 09/28/16 06:59 08/29/16 08:54 260 MLS/HR Lorazepam (Ativan Inj) 1 mg Q1H PRN IV 08/29/16 09:15 09/28/16 09:14 08/29/16 10:18 1 MG Morphine Sulfate (MoRPHine SULFATE INJ) 2 mg Q2H PRN IV 08/29/16 08:45 09/12/16 08:44 08/29/16 17:52 2 MG Morphine Sulfate (Roxanol Oral Soln) 5 mg Q1HWA PRN PO 08/29/16 11:45 09/12/16 11:44 Scopolamine (Transderm-Scop Patch) 1.5 mg Q3D@0900 TD 09/01/16 09:00 10/01/16 08:59 Miscellaneous (Remove Transderm-Scop Patch) 1 ea Q3D@0859 N/A 09/01/16 08:59 10/01/16 08:58 Miscellaneous Information (Check Scopolamine Patch Placement) 1 ea QS N/A 08/29/16 16:00 09/28/16 15:59 08/29/16 16:41 1 EA Lorazepam (Ativan Tab) 1 mg Q3H PRN SL 08/29/16 12:45 09/28/16 11:44
[2016-08-30] MEDS: CHECK SCOPOLAMINE PATCH PLACEMENT SCH ×3 (03:10→16:00)
[2016-08-30] MEDS: MoRPHine SULFATE 2 MG/ML CARP IV PRN ×3 (03:18→08:13)
--- NOTE | 2016-08-30 06:25 | Clinical Documentation Query ---
CLINICAL DOCUMENTATION QUERY 86 year old female who presented with CVA received TPA and has since has large hemorrhagic conversion. Repeat Head CT showed Interval development of a large left cerebral hemorrhage. Midline shift to the right of 1 cm with evidence for intraventricular extension. Geographic extent of the hemorrhage is probably 9 x 6 cm. Effacement of the left cerebral sulci, as well as developing pressure on the brainstem with partial effacement of the suprasellar cisterns. Since TPA patients neuro status has declined. GCS 6, NIHSS 32. In your clinical opinion is this patient being managed for: ( ) Compression of brain in setting of hemorrhagic conversion of CVA s/p TPA treated with comfort care. ( ) Other explanation of clinical findings (Please Explain) ( ) Unable to determine (Please Define) ( ) Need to Discuss ( ) Not Agree The medical record reflects the following clinical findings, treatment, and risk factors. Clinical Indicators: As above Treatment: Comfort care, Risk Factors: Large hemorrhagic conversion of CVA Please clarify and document your clinical opinion in the progress notes and discharge summary. Terms such as "probable", "suspected", "likely", "questionable", "possible", or "still to be ruled out" are acceptable. IF IN AGREEMENT, YOU MUST DOCUMENT ABOVE DIAGNOSTIC STATEMENT IN DAILY PROGRESS NOTES AND DISCHARGE SUMMARY. This document is not part of the patient's record. Thank You, Abram Mast RN [phone]
[2016-08-30] MEDS: LORAZEPAM 2 MG/ML 1 ML VIAL IV PRN (09:22)
[2016-08-30] MEDS ORDERED: MoRPHine SULFATE 4 MG/ML 1 ML CARP\\VIAL IV PRN (10:45)
[2016-08-30] MEDS ORDERED: MoRPHine SULFATE 2 MG/ML CARP IV PRN (11:00)
[2016-08-30] MEDS: MoRPHine SULF/NSS 250MG/250ML 250 ML IV PRN ×2 (12:13→13:41)
[2016-08-30] MEDS ORDERED: NURSING VERBAL MED ORDER ONE ×2 (13:30→14:45)
--- NOTE | 2016-08-30 17:50 | Progress Note ---
Internal Med Progress Note Date of Service: Aug 30, 2016. Provider Documentation: SUBJECTIVE: patient is on comfort measures unresponsive OBJECTIVE: Vital Signs-as noted below Exam: General-unresponsive Lungs-cta b/l using accessory muscles no wheezing or crackles Heart-s1 and s2 heard, regular rate and rhythm no murmurs Abdomen-soft bowel sounds present no distension Extremities-no edema no erythema Neuro-unresponsive Lab data as noted below. ASSESSMENT & PLAN: 86 yo female presents with large territory L infarct unresponsive to TPA 1. Acute CVA-patient was on ASA 325 prior to this, has Rheumatoid arthritis and age as risk factors for stroke. s/p TPA in ER with min to no improvement.Later had hemorrhagic conversion with 1cm right midline shift and family decided for comfort care. 2. Rheumatoid arthritis-holding MTX, prednisone held also--currently opn comfort care. 3. Anxiety/depression-holding Xanax and Sertraline. On comfort care. 4. Chronic pain-duragesic patch held/PO narcotics held 2/2 AMS, however, she is tolerant and withdrawal may be an issue down the road. On comfort care. To continue comfort care Vital Signs: Date Time Temp Pulse Resp B/P Pulse Ox O2 Delivery O2 Flow Rate FiO2 08/30/16 08:00 Room Air 08/30/16 00:00 Room Air 08/29/16 20:00 Room Air
--- NOTE | 2016-08-30 19:40 | Neurology Progress Notes ---
Neurology Progress Note Date of Service Aug 30, 2016. Milly Carrion is an 86 year old female who had a sudden event of aphasia and right sided facial droop and right sided weakness. She was seen in the ED and evaluated by Ryann neurology consult. CT indicated left sided stroke involving the frontal, temporal and parietal region and was given tPa given at approx 2030. There was no improvement with administration. She was then transferred to the ICU. Family decided to place her on comfort care and she was transferred to floor status. She currently is on morphine drip. Objective Date Time Temp Pulse Resp B/P Pulse Ox O2 Delivery O2 Flow Rate FiO2 08/30/16 08:00 Room Air 08/30/16 00:00 Room Air 08/29/16 20:00 Room Air no recent labs Imaging: no recent imaging Exam: Gen: resting comfortably non responsive to stimuli lungs: respiratory non labored CV irregular no spontaneous movement Current Inpatient Medications Medications (Trade) Dose Ordered Sig/Joseph Route Start Time Stop Time Status Last Admin Dose Admin Acetaminophen/ Empty Bag (Ofirmev IV/ Empty Iv Bag 100ml) 65 ml @ 260 mls/hr Q6H PRN IV 08/29/16 07:00 09/28/16 06:59 08/29/16 08:54 260 MLS/HR Lorazepam (Ativan Inj) 1 mg Q1H PRN IV 08/29/16 09:15 09/28/16 09:14 08/30/16 09:22 1 MG Morphine Sulfate (Roxanol Oral Soln) 5 mg Q1HWA PRN PO 08/29/16 11:45 09/12/16 11:44 Scopolamine (Transderm-Scop Patch) 1.5 mg Q3D@0900 TD 09/01/16 09:00 10/01/16 08:59 Miscellaneous (Remove Transderm-Scop Patch) 1 ea Q3D@0859 N/A 09/01/16 08:59 10/01/16 08:58 Miscellaneous Information (Check Scopolamine Patch Placement) 1 ea QS N/A 08/29/16 16:00 09/28/16 15:59 08/30/16 07:50 1 EA Lorazepam (Ativan Tab) 1 mg Q3H PRN SL 08/29/16 12:45 09/28/16 11:44 Morphine Sulfate (MoRPHine SULFATE INJ) 4 mg Q2H PRN IV 08/30/16 10:45 09/13/16 10:44 08/30/16 10:45 4 MG Morphine Sulfate 2 mg 2 mg Q1HWA PRN IV 08/30/16 11:00 09/13/16 10:59 Morphine Sulfate/ Dextrose (Morphine Sulf/ Nss 250MG/250ML) 250 ml @ 4 mls/hr Q24H PRN IV 08/30/16 11:30 09/13/16 11:29 08/30/16 13:41 3 MLS/HR Impression 86 year old female with right side weakness, facial droop, tPa administered and hemorrhagic conversion Plan 1. family requesting comfort care 2. no further intervention 3. condolences offered to family 4. grim prognosis 5. will follow as needed I have discussed above patient with Dr Ying Hanley, neurology Agree with management as above, KAE Hanley MD
[2016-08-31 02:44] LABS: HYDROXYETHYLFLURAZEPAM CONF NEGATIVE NG/ML (CUTOFF=50); HYDROXYMIDAZOLAM NEGATIVE NG/ML (CUTOFF=50); HYDROXYTRIAZOLAM CONF NEGATIVE NG/ML (CUTOFF=50); TEMAZEPAM CONF NEGATIVE NG/ML (CUTOFF=50)
[2016-08-31] MEDS: CHECK SCOPOLAMINE PATCH PLACEMENT SCH ×3 (08:16→15:30)
[2016-08-31 08:32] VITALS: TEMP 39.4
[2016-08-31] MEDS: ACETAMINOPHEN IV 650 MG in EMPTY BAG 0 ML IV PRN (08:32)
--- NOTE | 2016-08-31 16:04 | Progress Note ---
Internal Med Progress Note Date of Service: Aug 31, 2016. Provider Documentation: SUBJECTIVE: patient is on comfort measures OBJECTIVE: Vital Signs-as noted below Exam: General-unresponsive Lungs-cta b/l using accessory muscles no wheezing or crackles Heart-s1 and s2 heard, regular rate and rhythm no murmurs Abdomen-soft bowel sounds present no distension Extremities-no edema no erythema Neuro-unresponsive Lab data as noted below. ASSESSMENT & PLAN: 86 yo female presents with large territory L infarct unresponsive to TPA 1. Acute CVA- Compression of Brain in setting of Hemorrhagic conversion of CVVA s/p tpa with midline shift patient was on ASA 325 prior to this, has Rheumatoid arthritis and age as risk factors for stroke. s/p TPA in ER with minimal to no improvement.Later had hemorrhagic conversion with 1cm right midline shift and family decided for comfort care.On morphine drip 2. Rheumatoid arthritis-holding MTX, prednisone held also--currently on comfort care. 3. Anxiety/depression-holding Xanax and Sertraline. On comfort care. 4. Chronic pain-duragesic patch held/PO narcotics held 2/2 AMS, however, she is tolerant and withdrawal may be an issue down the road. On comfort care. To continue comfort care Vital Signs: Date Time Temp Pulse Resp B/P Pulse Ox O2 Delivery O2 Flow Rate FiO2 08/31/16 15:00 Nasal Cannula 2.0 08/31/16 09:30 Nasal Cannula 2.0 08/31/16 08:32 39.4 08/31/16 00:30 Nasal Cannula 2.0
[2016-08-31] MEDS: MoRPHine SULF/NSS 250MG/250ML 250 ML IV PRN (17:13)
[2016-08-31] MEDS ORDERED: NURSING VERBAL MED ORDER ONE (17:30)
[2016-09-01] MEDS ORDERED: SCOPOLAMINE 1.5 MG TDSY TD SCH (09:00)
--- NOTE | 2016-09-04 19:42 | Discharge Summary ---
Discharge Summary Date of Service Sep 04, 2016. Discharge Summary Admission Date: Aug 28, 2016 at 23:28 Discharge Disposition: Home () Principal Diagnosis: ACUTE CVA WITH HEMORRHAGIC CONVERSION Secondary Diagnoses/Problems: (1) Ambulatory dysfunction Status: Chronic (2) Anxiety Status: Chronic (3) Depression Status: Chronic (4) Glaucoma Status: Chronic (5) Hyperlipidemia Status: Chronic (6) Hypertension Status: Chronic (7) Osteoarthritis Status: Chronic (8) Osteoporosis Status: Chronic (9) Rheumatoid arthritis Status: Chronic Procedures: CT head 1. No acute intracranial hemorrhage. 2. Study moderately by by motion artifact. Possible loss of andrews-white differentiation within portions of the left frontal, temporal and parietal lobes. This could reflect an acute infarct although is suboptimally assessed due to motion artifact. Repeat CT head 1. Interval development of a large left cerebral hemorrhage. 2. Midline shift to the right of 1 cm with evidence for intraventricular extension. 3. Geographic extent of the hemorrhage is probably 9 x 6 cm. 4. Effacement of the left cerebral sulci, as well as developing pressure on the brainstem with partial effacement of the suprasellar cisterns. Consultations: Neurology Critical care Admission Information HPI (per Admitting provider): 86 YO F presented to ER after family noticed acute stroke symptoms at home that began roughly one hour prior to arrival. Per and son who are at bedside she was unable to speak, had R facial droop and generalized weakness greater on the right. A stroke alert was called and she received TPA without improvement in symptoms. CT head reveals a massive stroke on the left side and the patient has a leftward gaze. She is unable to communicate at this time. Per her , she was just speaking with him about how she didn't want any aggressive measures, therefore she is DNR/DNI. We discussed there is a possibility she may worsen overnight and he verbalized understanding that this could occur. Physical Exam (per Admitting): GEN: frail, elderly thin, aphasic with frothing at the mouth, leftward gaze and cannot look past midline to the right side, expression less face, appears calm and somewhat alert in that she is opening her eyes but is not following commands. HEENT: NC/AT, PERRL, normal sclerae, leftward gaze CARDIO: reg rate, S1/2 heard without m/g/r LUNGS: (very limited exam as patient cannot follow instructions and has limited mobility) CTA bilaterally, no crackles, rales or wheezes, good diaphragmatic excursion ABD: soft, non-distended, no rebound or guarding, +BS EXTREMITY: RP and DP palpable 2+ bilat, no LE swelling or edema, extremities are warm and well-perfused R upgoing toe, appears to flex knee and RUE when stimulated on the right side L could not elicit reflexes, random movements with LUE and LLE NEURO: as above, limited exam MUSC: as above. SKIN: warm and dry Hospital Course 86 yo female presents with large territory L infarct unresponsive to TPA AND LATER HAD HEMORRHAGIC CONVERSION AND FAMILY DECIDED FOR COMFORT CARE. PATIENT ON August AT 2035. 1. Acute CVA- Compression of Brain in setting of Hemorrhagic conversion of CVVA s/p tpa with midline shift patient was on ASA 325 prior to this, has Rheumatoid arthritis and age as risk factors for stroke. s/p TPA in ER with minimal to no improvement.Later had hemorrhagic conversion with 1cm right midline shift and family decided for comfort care.On morphine drip 2. Rheumatoid arthritis-holding MTX, prednisone held also--currently on comfort care. 3. Anxiety/depression-holding Xanax and Sertraline. On comfort care. 4. Chronic pain-duragesic patch held/PO narcotics held 2/2 AMS, however, she is tolerant and withdrawal may be an issue down the road. On comfort care. Total time spent on discharge = 30MINUTES This includes examination of the patient, discharge planning, medication reconciliation, and communication with other providers. Discharge Instructions PATIENT
== END 2016-08-31 23:10 | disposition expired | DRG 61 ==
LOC: ENRESERVTM → ENRESERVDT → C.ED 20:07 → C.MSICU 23:28 → C.4E 08-29 14:55
PROVIDERS: ADMIT Hospitalist; ATTEND Internal Medicine
DX: I63.9 Cerebral infarction, unspecified (principal); G93.41 Metabolic encephalopathy; I61.9 Nontraumatic intracerebral hemorrhage, unspecified; Z66 Do not resuscitate; F41.9 Anxiety disorder, unspecified; F32.9 Major depressive disorder, single episode, unspecified; E78.5 Hyperlipidemia, unspecified; R29.810 Facial weakness; Z51.5 Encounter for palliative care; H40.9 Unspecified glaucoma; I10 Essential (primary) hypertension; M19.90 Unspecified osteoarthritis, unspecified site; R26.9 Unspecified abnormalities of gait and mobility; M81.0 Age-related osteoporosis without current pathological fracture; M06.9 Rheumatoid arthritis, unspecified; Z79.82 Long term (current) use of aspirin; Z79.899 Other long term (current) drug therapy; Z79.52 Long term (current) use of systemic steroids; G89.29 Other chronic pain; K21.9 Gastro-esophageal reflux disease without esophagitis; E03.9 Hypothyroidism, unspecified; R47.01 Aphasia